=== PATIENT | male | born 1950 | race Caucasian/White ===

== ENCOUNTER → 2018-09-03 | Outpatient (CLI) | payer MEDICARE, MEDICAID ==
[~2018-09-03] MED LIST: AMIO400T5 PO; AMLO10TA82 PO; ASP325T PO; ATR20T PO; CATHETER FLUSH 10 ML SYR IV PRN; DILT240C PO; DILT300T7 PO; Eliquis PO; FURO40TA4 PO; HYDR-3857 PO; LISI10TA PO; METO-272 PO; METO25TA2 PO; MTP50T PO; REGADENOSON 0.4 MG/5 ML SYR (LEXISCAN) IV ONE; ROSU10TA12 PO; TRAM50TA2 PO
[2018-09-03 08:57] VITALS: BP 160/117
[2018-09-03 08:58] VITALS: BP 147/97
--- NOTE | 2018-09-03 12:28 | STRESS TEST ---
DATE OF SERVICE: 09/03/2018 LEXISCAN MYOVIEW STRESS TEST REPORT REFERRING PHYSICIANS: 1. Jan Krishnan DO 2. Ginger Reed MD Baseline heart rate is 80, baseline blood pressure 165/110. Baseline EKG is atrial fibrillation with no ischemic changes. In summary, the patient was injected with 10.31 mCi of technetium-99 Myoview and the resting images were obtained. Then, the patient started receiving Lexiscan 0.4 mg IV followed by 29.3 mCi of technetium-99 Myoview. Throughout the test, there were no EKG changes. The resting and stressed images were reviewed and compared in the short axis, horizontal long axis, and vertical long axis views. Review of the images showed diaphragmatic attenuation with typical male pattern. There is mild apical thinning. Overall, there is no significant ischemia or infarction. SSS is 1, SDS 1, TID value 1.02. On the gated images, the left ventricle appeared to be normal size with normal contractility. Calculated ejection fraction 49%. Gated images are unreliable due to underlying atrial fibrillation. CONCLUSION: 1. The patient tolerated Lexiscan well. 2. Diaphragmatic attenuation with no significant ischemia or infarction on SPECT images. 3. Normal left ventricular size and contractility, calculated ejection fraction 49%, gated images are unreliable due to underlying atrial fibrillation. Job ID: [id number] DocumentID: [id number] Dictated Date: 09/03/2018 11:43:23 Public Housing Interviewer Date: 09/03/2018 12:27:54 Dictated By: BARBARA GUILLEN MD
== END ==
LOC: CARD 07:24
PROVIDERS: ATTEND Internal Medicine Cardiovascular Disease
DX: I25.10 Atherosclerotic heart disease of native coronary artery without angina pectoris (principal); I11.0 Hypertensive heart disease with heart failure; I50.9 Heart failure, unspecified; I48.92 Unspecified atrial flutter
CPT/HCPCS: 78452; 93017

== ENCOUNTER 2019-08-19 13:18 | Inpatient (IN) | payer MEDICARE, MEDICAID ==
[2019-08-19] VITALS (7 sets, daily range): BP systolic 116–146; BP diastolic 78–99
[~2019-08-19] VITALS: Ht 170.2 cm; Wt 90.6 kg
[~2019-08-19 13:18] MED LIST changes: -CATHETER FLUSH 10 ML SYR IV PRN; -REGADENOSON 0.4 MG/5 ML SYR (LEXISCAN) IV ONE
[2019-08-19] MEDS ORDERED: BRIM5DRO2 OU (14:05)
[2019-08-19] MEDS ORDERED: WARF2.5T82 PO (14:05)
[2019-08-19] MEDS ORDERED: FURO-124 PO (14:05)
[2019-08-19] MEDS ORDERED: ASPI-983 PO (14:05)
[2019-08-19] MEDS ORDERED: POTA-51 PO (14:05)
[2019-08-19] MEDS ORDERED: SACU1TAB PO (14:05)
[2019-08-19] MEDS ORDERED: CALC200T33 PO (14:05)
[2019-08-19] MEDS ORDERED: ATOR40TA70 PO (14:05)
[2019-08-19] MEDS ORDERED: WARF-48 PO (14:05)
[2019-08-19] MEDS ORDERED: CRV25T PO (14:05)
[2019-08-19] MEDS ORDERED: LANO454C3 TP (14:05)
[2019-08-19] MEDS ORDERED: MINE15DR4 OU (14:05)
[2019-08-19] MEDS ORDERED: LATA2.5D19 OU (14:05)
--- NOTE | 2019-08-19 14:07 | NUR ---
UPDATED MED REC WITH MAR FROM [facility].
[2019-08-19 14:51] LABS: HEMOGLOBIN 11.5 G/DL (13.3-17.7); MEAN PLATELET VOLUME 9.2 FL (7.4-10.4); RED CELL DISTRIBUTION WIDTH 16.7 % (10.0-14.5); WHITE BLOOD COUNT 7.8 10^3/uL (4.3-11.0)
[2019-08-19 15:11] LABS: INR 1.9 (0.8-1.4); PROTHROMBIN TIME PATIENT 22.6 SEC (12.2-14.7)
[2019-08-19 15:12] LABS: ALANINE AMINOTRANSFERASE 32 U/L (0-55); ALBUMIN 3.6 GM/DL (3.2-4.5); ALKALINE PHOSPHATASE 128 U/L (40-136); BILIRUBIN,TOTAL 0.7 MG/DL (0.1-1.0); BUN/CREATININE RATIO 14; CARBON DIOXIDE 26 MMOL/L (21-32); CHLORIDE 104 MMOL/L (98-107); CREATININE SERUM 1.04 MG/DL (0.60-1.30); GFR ESTIMATED > 60; GLUCOSE 115 MG/DL (70-105); MAGNESIUM 2.1 MG/DL (1.6-2.4); POTASSIUM 4.5 MMOL/L (3.6-5.0); SODIUM 140 MMOL/L (135-145); TOTAL PROTEIN 7.2 GM/DL (6.4-8.2)
--- NOTE | 2019-08-19 15:56 | Electrophysiology Consultation ---
HPI-Cardiology Cardiology Consultation: Date of Consultation 08/19/19 Date of Admission Attending Physician Kit Moulton MD Admitting Physician Jan Krishnan DO Consulting Physician Tarah GALLAGHER MD HPI: Time Seen by a Provider: 15:00 Chief Complaint: Ventilated tachycardia This is a 69-year-old gentleman who is a patient of Dr. Moulton. I have been consulted for cardiac electrophysiology. He presented to [facility] on 08/14/2019 with chest pain, diaphoresis, palpitation and was found to be in wide complex tachycardia. He was cardioverted to sinus rhythm. The patient has history of CABG in 2012 at [facility] and known cardiomyopathy with an EF of 30 percent. He is on Entresto and carvedilol. He does not smoke. He does not have significant family history. He denies diabetes. Review of Systems-Cardiology Review of Systems Constitutional: As described under HPI; No As described under HPI, No no symptoms reported, No chills, No fever, No lightheadedness Eyes: No As described under HPI, No no symptoms reported, No blindness, No blurred vision, No contact lenses, No drainage, No decreased acuity, No foreign body sensation, No pain, No vision change Ears/Nose/Throat: No As described under HPI, No no symptoms reported, No chronic hearing loss, No ear discharge, No ear pain, No nasal drainage, No ulcerations Respiratory: No no symptoms reported; As described under HPI; No As described under HPI, No cough, No orthopnea, No shortness of breath, No SOB with excertion Cardiovascular: No no symptoms reported; As described under HPI; No As described under HPI; chest pain; No edema, No irregular heart rate, No lightheadedness; palpitations Gastrointestinal: No no symptoms reported, No As described under HPI, No abdomen distended, No abdominal pain, No blood streaked bowels, No constipation, No diarrhea, No nausea, No vomiting, No stool coloration changes Genitourinary: No As described under HPI, No burning, No dysuria, No discharge, No frequency, No flank pain, No hematuria, No urgency Skin: No rash, No skin related problems, No ulcerations Psychiatric/Neurological: No anxiety, No depression, No seizure, No focal we akness, No syncope Hematologic: No bleeding abnormalities [id number]-[id number] Hx Patient Social History Recent Foreign Travel: No Past Medical History PMH As described under Assessment. Allergies and Home Medications Allergies Coded Allergies: No Known Drug Allergies (Unverified , 08/05/12) Home Medications Aspirin 81 Mg Tablet.dr, 81 MG PO DAILY, (Reported) Atorvastatin Calcium 40 Mg Tablet, 40 MG PO DAILY, (Reported) Brimonidine Tartrate 5 Ml Drops, 1 DROP OU BID, (Reported) Calcium Carbonate 200 Mg Tab.chew, 1 TAB PO Q6H PRN for HEARTBURN, (Reported) Carvedilol 25 Mg Tab, 25 MG PO BID, (Reported) Furosemide 40 Mg Tablet, 60 MG PO BID, (Reported) Lanolin Alcohol/Mo/W.pet/[place] 454 Gm Cream..g., TP HS, (Reported) APPLY TO BLE Latanoprost 2.5 Ml Drops, 1 DROP OU HS, (Reported) Mineral Oil, Light/Mineral Oil 15 Ml Drops, 1 DROP OU QID, (Reported) Potassium Chloride 20 Meq Tablet.er, 20 MEQ PO DAILY, (Reported) Sacubitril/Valsartan 1 Each Tablet, 1 TAB PO BID, (Reported) HOLD IF SBP <100 Warfarin Sodium 2.5 Mg Tablet, 2.5 MG PO MoWeFr, (Reported) Warfarin Sodium 5 Mg Tablet, 5 MG PO SuTuThSa, (Reported) Patient Home Medication List Home Medication List Reviewed: Yes Physical Exam-Cardiology Physical Exam Vital Signs/I&O 08/19/19 08/19/19 08/19/19 08/19/19 13:33 13:45 14:00 14:00 Pulse 86 89 79 Resp 29 29 B/P (MAP) 135/85 (102) 129/78 (95) Pulse Ox 98 95 96 O2 Delivery Room Air Room Air Room Air 08/19/19 15:00 Pulse 84 Resp 24 B/P (MAP) Pulse Ox 97 O2 Delivery Room Air Capillary Refill : Constitutional: appears stated age, AAO x 3; No apparent distress; well- developed, well-nourished HEENT: PERRL; No discharge; hearing is well preserved, oral hygience is good; No ulceration, No xanthelasmas are seen Neck: No carotid bruit; carotid pulses are 2 + bilaterally Respiratory: chest is bilaterally symmetric, lungs clear to auscultation Cardiovascular: irregularly irregular, S1 and S2 Gastrointestinal: soft, round, audible bowel sounds; No spleenomegaly Rectal: deferred Extremities: normal range of motion, non-tender, normal inspection; No clubbing, No cyanosis; no lower extremity edema bilateral; No significant edema Neurologic/Psychiatric: no motor/sensory deficits, alert, normal mood/affect, oriented x 3, power is 5/5 both on sides Skin: normal color; No rash, No ulcerations Data Review Labs Laboratory Tests 08/19/19 14:40: White Blood Count 7.8, Red Blood Count 3.99L, Hemoglobin 11.5L, Hematocrit 36L, Mean Corpuscular Volume 91, Mean Corpuscular Hemoglobin 29, Mean Corpuscular Hemoglobin Concent 32, Red Cell Distribution Width 16.7H, Platelet Count 271, Mean Platelet Volume 9.2, Prothrombin Time 22.6H, INR Comment 1.9H, Activated Partial Thromboplast Time 45H, Sodium Level 140, Potassium Level 4.5, Chloride Level 104, Carbon Dioxide Level 26, Anion Gap 10, Blood Urea Nitrogen 15, C reatinine 1.04, Estimat Glomerular Filtration Rate > 60, BUN/Creatinine Ratio 14, Glucose Level 115H, Calcium Level 9.0, Corrected Calcium 9.3, Magnesium Level 2.1, Total Bilirubin 0.7, Aspartate Amino Transf (AST/SGOT) 19, Alanine Aminotransferase (ALT/SGPT) 32, Alkaline Phosphatase 128, Troponin I < 0.028, Total Protein 7.2, Albumin 3.6, Thyroid Stimulating Hormone (TSH) 3.99 ECG Impression ECG Initial ECG Impression: Atrial Fibrillation A/P-Cardiology Assessment/Admission Diagnosis Sustained VT, Atrial fibrillation with controlled ventricular rate Chest pain, History of CAD/CABG, Ischemic cardiomyopathy Plan This is a 69-year-old gentleman with known history of CAD, CABG, ischemic cardiomyopathy who presented with unstable sustained ventricular tachycardia wit h chest pain and diaphoresis requiring defibrillation which converted to sinus rhythm. Hold Coumadin. Continue high-dose beta joselyn. Coronary evaluation is recommended and discussed with Dr. Moulton. No antiarrhythmics at this point in time. Will likely require transesophageal echocardiogram assisted cardioversion followed by dual-chamber ICD implantation once INR is within ac ceptable limits. ICD is recommended for secondary prevention. EKG dated 08/14/2019 at 9:23 a.m. shows sinus rhythm with narrow QRS. QRS duration is 80 ms. DIE MAKER therapy is not recommended. Atrial fibrillation with controlled ventricular rate, transesophageal echocardiogram assisted cardioversion. Rhythm control strategy. Ischemic cardiomyopathy, defer to Dr. Moulton. Preliminary echocardiogram shows an EF of 30-35 percent, global hypokinesis. CAD/CABG, defer to Dr. Moulton. Will likely get coronary evaluation. Thank you for your consultation. Please call me if you have any questions. Kaushik Gallagher MD, FACP, FACC, FSCAI, FHRS, CCDS Interventional Cardiology Cardiac Electrophysiology Vascular Medicine and Endovascular Interventions Tarah GALLAGHER MD Aug 19, 2019 15:56
[2019-08-19] MEDS ORDERED: CALCIUM CARBONATE PO PRN (16:15)
[2019-08-19] MEDS ORDERED: CALCIUM CARBONATE 500 MG (TUMS) TAB.CHEW PO PRN (16:15)
--- NOTE | 2019-08-19 16:17 | Diagnostic Imaging Report ---
INDICATION: Arrhythmia. PA and lateral chest. FINDINGS: There are postop changes from CABG surgery. Heart size and pulmonary vascularity are normal. Lungs are clear. There are no effusions or pneumothoraces. IMPRESSION: No acute abnormalities in the chest. Dictated by: Dictated on workstation # [id number]
[2019-08-19] MEDS: FUROSEMIDE 40 MG (LASIX) TAB PO SCH (17:35)
[2019-08-19] MEDS: LATANOPROST 0.005% (XALATAN) OPHTH SOLN 2.5 ML OU SCH (19:49)
[2019-08-19] MEDS: BRIMONIDINE 0.2% (ALPHAGAN) OPHTH SOLN 5 ML BTL OU SCH (19:49)
[2019-08-19] MEDS: CARVEDILOL 12.5 MG (COREG) TABLET PO SCH (19:50)
[2019-08-19] MEDS: SACUBITRIL/VALSARTAN 24/26 MG (ENTRESTO) TABLET PO SCH (19:50)
[2019-08-19] MEDS ORDERED: NON-FORMULARY MEDICATION 1 EA EA (Brimonidine Tartrate (Alphagan P) 1 DROP) OU SCH (21:00)
[2019-08-19] MEDS ORDERED: NON-FORMULARY MEDICATION 1 EA EA (Carvedilol (Coreg) 25 MG) PO SCH (21:00)
[2019-08-19] MEDS ORDERED: LATANOPROST OU SCH (21:00)
[2019-08-20] VITALS (18 sets, daily range): BP systolic 91–147; BP diastolic 69–111
[2019-08-20 03:54] LABS: INR 1.8 (0.8-1.4)
[2019-08-20] MEDS: KCL 20 MEQ TAB (K-DUR) PO SCH (06:29)
[2019-08-20] MEDS: FUROSEMIDE 40 MG (LASIX) TAB PO SCH ×2 (06:29→18:15)
[2019-08-20] MEDS ORDERED: LIDOCAINE 1% INJ 20 ML 20 ML VIAL ONE (06:46)
[2019-08-20] MEDS ORDERED: HEParin (CATH LAB) 2,000 ML IV ONE (06:47)
--- NOTE | 2019-08-20 07:03 | Cardiology History & Physical ---
HPI-Cardiology Cardiology Consultation Date of Consultation 08/20/19 Date of Admission Time Seen by Provider: 06:57 Indication: ventricular tachycardia HPI 69 years old gentleman with history of ischemic cardiomyopathy, coronary artery disease, presented to [place] emergency room with wide complex tachycardia and chest pain and diaphoresis, given Adenosine without response then he was cardioverted using 100 J, has been feeling better since then. I saw the office and directly admitted him. He has been feeling well. Has been compliant with medication. Had chest pain and palpitations as described above. Had history of atrial fibrillation, was in sinus rhythm after the cardioversion on August 14, 2019 PMH-Cardiology Seasonal Allergies Seasonal Allergies: Yes Surgeries Yes Cardiac Respiratory No Cardiovascular Yes Irregular Heartbeat, Atrial Fibrillation, Heart Attack, Chronic Edema/Swelling, High Cholesterol, Hypertension, Congestive Heart Failure, Coronary Artery Disease Neurological No Reproductive System Hx Reproductive Disorders: No Genitourinary No Gastrointestinal No Musculoskeletal No (weakness) Endocrine No HEENT No Cancer No Psychosocial No Integumentary Yes (scarring to arms) Blood Transfusions No Adverse Rxn to Transfusion: No Other PMHx Discussed below Social History Patient Social History Marrital Status: single Employed/Student: unemployed, retired Alcohol Use: Denies Use Recreational Drug Use: No Recent Foreign Travel: No Contact w/other who traveled: No Recent Infectious Disease Expo: No Family Hx Significant Family History: Heart Disease, Cancer, CAD Under 55 Years Old Other Family history of heart disease ROS-Cardiology Review of Systems General: No Chills, No Night Sweats, No Fatigue, No Malaise, No Appetite HEENT: No Head Aches, No Visual Changes, No Eye Pain, No Ear Pain, No Dysphasia, No Sinus Congestion, No Post Nasal Drip, No Sore Throat Pulmonary: Dyspnea; No Cough, No Pleuritic Chest Pain Cardiovascular: Chest Pain, Palpitations; No: Orthopnea, Paroxysmal Noc. Dyspnea, Edema, Lt Headedness Gastrointestinal: No: Nausea, Vomiting, Abdominal Pain, Diarrhea, Constipation, Melena, Hematochezia Genitourinary: No Dysuria, No Frequency, No Incontinence, No Hematuria, No Retention Musculoskeletal: No: neck pain, shoulder pain, arm pain, back pain, hand pain, leg pain, foot pain Neurological: No: Weakness, Numbness, Incoordination, Change in speech, Confusion, Seizures Home Medications & Allergies Allergies: Coded Allergies: No Known Drug Allergies (Unverified , 08/05/12) Home Medication List Reviewed: Yes Exam-Cardiology Vital Signs Vital Signs Date Time Temp Pulse Resp B/P (MAP) Pulse Ox O2 Delivery O2 Flow Rate FiO2 08/20/19 04:00 36.1 08/20/19 03:00 78 122/88 (99) 92 Room Air 08/19/19 16:05 18 Exam General Appearance: Alert, Oriented X3, Cooperative, No Acute Distress HEENT: Atraumatic, PERRLA Respiratory: Clear to Auscultation, Normal Air Movement Cardiovascular: Regular Rate, Normal S1, Normal S2, No Murmurs Abdominal: Normal Bowel Sounds, Soft, No Tenderness, No Hepatosplenomegaly, No Masses Extremities: No Clubbing, No Cyanosis, No Edema, Normal Pulses, No Tenderness/Swelling Skin: No Rashes, No Breakdown, No Significant Lesion Neuro: Normal Gait, Normal Speech, Strength at 5/5 X4 Ext, Normal Tone, Sensation Intact Psych/Mental Status: Mental Status NL, Mood NL Results Labs Labs Laboratory Tests 08/19/19 14:40: White Blood Count 7.8, Red Blood Count 3.99L, Hemoglobin 11.5L, Hematocrit 36L, Mean Corpuscular Volume 91, Mean Corpuscular Hemoglobin 29, Mean Corpuscular Hemoglobin Concent 32, Red Cell Distribution Width 16.7H, Platelet Count 271, Mean Platelet Volume 9.2, Prothrombin Time 22.6H, INR Comment 1.9H, Activated Partial Thromboplast Time 45H, Sodium Level 140, Potassium Level 4.5, Chloride Level 104, Carbon Dioxide Level 26, Anion Gap 10, Blood Urea Nitrogen 15, Creati nine 1.04, Estimat Glomerular Filtration Rate > 60, BUN/Creatinine Ratio 14, Glucose Level 115H, Calcium Level 9.0, Corrected Calcium 9.3, Magnesium Level 2.1, Total Bilirubin 0.7, Aspartate Amino Transf (AST/SGOT) 19, Alanine Aminotra nsferase (ALT/SGPT) 32, Alkaline Phosphatase 128, Troponin I < 0.028, Total Protein 7.2, Albumin 3.6, Thyroid Stimulating Hormone (TSH) 3.99 08/20/19 03:05: Prothrombin Time 22.0H, INR Comment 1.8H A/P-Cardiology Admission Diagnosis Ventricular tachycardia Coronary artery disease Congestive heart failure, chronic compensated left ventricular systolic dysfunction, ischemic cardiomyopathy Hypertension Hyperlipidemia Admission Status: Inpatient Order (span 2 midnights) Reason for Inpatient Admission: Patient will need heart catheterization and ICD implant Assessment/Plan Coronary artery disease, history of CABG 5 done in 2011, last stress test was done on September 03, 2018 showing diaphragmatic attenuation with no significant ischemia or infarction. Gated images showed ejection fraction 49 percent but patient was in atrial fibrillation on his echo his ejection fraction was 30 percent. Patient had ventricular tachycardia, repeat echo showed ejection fraction 35-40 percent, high risk for coronary artery disease progression, I will proceed with cardiac catheterization, he will need an ICD implant Congestive heart failure, LV systolic dysfunction with EF 30 percent. Likely ischemic in nature. Deterioration compared to the 2013 2-D echocardiogram. Ma intained on beta joselyn, ARB, was seen in [place] emergency room with ventricular tachycardia, underwent defibrillation shock, I am planning to proceed with coronary angiogram then possible ICD implant Patient was seen in [place] emergency room on August 14, 2019 with chest pain and wide complex tachycardia, failed Adenosine, he was cardioverted with 100 J return to sinus rhythm with narrow complex, consult Dr. Gallagher Dyspnea on exertion, limited exercise ability. Continue on current medication monitor History of paroxysmal atrial flutter, atrial fibrillation, currently in sinus rhythm. Maintained on Coumadin, INR 1.8, I will start him on Lovenox after the cardiac catheterization Labile hypertension, blood pressure currently well controlled, continue to monitor. Hyperlipidemia, maintained on Lipitor, had lab work done recently, I'll obtain copy of the results Baseline EKG abnormality was sinus rhythm, left axis deviation. Left anterior fascicular block. Poor R-wave progression in the anterior leads. Nonobstructive carotid artery stenosis per carotid duplex done June 2018, continue to monitor. Unsteady gait and generalized weakness for which he uses a wheelchair. Clinical Quality Measures DVT/VTE Risk/Contraindication: Risk Factor Score Per Nursin RFS Level Per Nursing on Admit: 4+=Very High BARBARA GUILLEN MD Aug 20, 2019 07:02
[2019-08-20] MEDS ORDERED: NS IV 1000 ML 1,000 ML IV SCH (07:45)
--- NOTE | 2019-08-20 08:35 | Consultation - Hospitalist ---
HPI History of Present Illness: HPI/Chief Complaint patient is 69-year-old male with a past medical history of coronary artery disease status post CABG 5, ischemic cardiomyopathy, paroxysmal atrial fibrillation, and hypertension who presented to Dr. Membreno's office as a follow- up for nonsustained ventricular tachycardia. Patient reports he was seen at [facility] ER because his heart was racing and was found to be in a wide complex tachycardia. Per notes he was given adenosine without resolution and subsequently was cardioverted. This returned him to sinus rhythm and he was advised to follow-up with Dr. Membreno is an outpatient. Dr. Membreno saw the patient yesterday and direct admitted him for further cardiac evaluation. I am consulted for medical management. The only other medical problem the patient to report to me is that he recently had a urinary tract infection. He denies any chest pain, shortness of breath, palpitations,nausea, vomiting, or loss of appetite. Source: patient Exam Limitations: no limitations Date Seen 08/20/19 Attending Physician Kit Moulton MD PCP Jan Krishnan DO Referring Physician Date of Admission Aug 19, 2019 at 13:30 Home Medications & Allergies Home Medications Reviewed patient Home Medication Reconciliation performed by pharmacy medication reconciliations video game repair technician and/or nursing. Patients Allergies have been reviewed. Allergies Allergies Coded Allergies No Known Drug Allergies (Unverified08/05/12) Past Aalmlcr-Lfcgqm-Lygszr Hx Past Med/Social Hx: Reviewed Nursing Past Med/Soc Hx Patient Social History Marrital Status: single Employed/Student: retired Alcohol Use: Denies Use Recreational Drug Use: No Smoking Status: Never a Smoker Physical Abuse Screen: No Sexual Abuse: No Recent Foreign Travel: No Contact w/other who traveled: No Recent Hopitalizations: No Recent Infectious Disease Expo: No Seasonal Allergies Seasonal Allergies: Yes Past Medical History Surgeries: CABG Cardiac: Atrial Fibrillation, Cardiomyopathy, Coronary Artery Disease, High Ch olesterol, Hypertension, Irregular Heartbeat Reproductive: No HEENT: Glaucoma History of Blood Disorders: No Adverse Reaction to Blood Sinclair: No Family History Reviewed Nursing Family Hx Heart Disease, Cancer, CAD Under 55 Years Old Review of Systems Constitutional: no symptoms reported EENTM: no symptoms reported Respiratory: No cough, No dyspnea on exertion, No short of breath Cardiovascular: see HPI Gastrointestinal: no symptoms reported Genitourinary: No discharge, No dysuria, No frequency; other (recent UTI) Musculoskeletal: no symptoms reported Skin: no symptoms reported Psychiatric/Neurological: No Symptoms Reported Physical Exam Physical Exam Vital Signs Vital Signs - First Documented 08/19/19 08/19/19 08/19/19 13:33 13:45 16:05 Temp 37.0 Pulse 86 Resp 29 B/P (MAP) 135/85 (102) Pulse Ox 98 O2 Delivery Room Air Capillary Refill : Height, Weight, BMI Height: '" Weight: 213lbs. 0.3oz. [id number]; 33.72 BMI Method:Stated General Appearance: No Apparent Distress, Chronically ill, Obese HEENT: Moist Mucous Membranes; No Scleral Icterus (L), No Scleral Icterus (R) Neck: Normal Inspection, Supple; No JVD, No Thyromegaly Respiratory: Lungs Clear, No Accessory Muscle Use, No Respiratory Distress Cardiovascular: Regular Rate, Rhythm, No Murmur, Normal Peripheral Pulses Gastrointestinal: Normal Bowel Sounds, Non Tender, Soft Extremity: Non Tender, No Calf Tenderness, No Pedal Edema Neurologic/Psychiatric: Alert, Oriented x3, Normal Mood/Affect; No Aphasia, No Facial Droop Skin: Normal Color, Warm/Dry Results Results/Procedures Labs Laboratory Tests 08/19/19 14:40 Patient resulted labs reviewed. Imaging: Reviewed Imaging Report Assessment/Plan Assessment and Plan Assess & Plan/Chief Complaint Nonsustained Ventricular Tachycardia CAD s/p CABG Ischemic Cardiomyopathy with EF 35%- echo done 08/20/19 paroxysmal Atrial Fibrillation Monitor on telemetry Plan for Cath today per Dr Saige Gallagher consulted for EP- recommended ROSS and cardioversion with ICD placement Warfarin held for procedure- INR 1.8 HTN Well controlled on current regimen, trend HLD Continue statin Discharge planning From [place] Diagnosis/Problems Diagnosis/Problems (1) Atrial fibrillation (2) CAD (coronary artery disease) (3) Essential (primary) hypertension (4) Hyperlipidemia (5) V tach Clinical Quality Measures DVT/VTE Risk/Contraindication: Risk Factor Score Per Nursin RFS Level Per Nursing on Admit: 4+=Very High MYRTLE MANSFIELD MD Aug 20, 2019 08:35
[2019-08-20] MEDS ORDERED: NON-FORMULARY MEDICATION 1 EA EA (Potassium Chloride 20 MEQ) PO SCH (09:00)
[2019-08-20] MEDS: BRIMONIDINE 0.2% (ALPHAGAN) OPHTH SOLN 5 ML BTL OU SCH ×2 (09:05→21:00)
[2019-08-20] MEDS: CARVEDILOL 12.5 MG (COREG) TABLET PO SCH ×2 (09:05→21:02)
[2019-08-20] MEDS: SACUBITRIL/VALSARTAN 24/26 MG (ENTRESTO) TABLET PO SCH ×2 (09:05→21:00)
[2019-08-20] MEDS: ASPIRIN E.C. 81 MG (ECOTRIN) TAB PO SCH (09:06)
--- NOTE | 2019-08-20 12:56 | Cardiac Procedure Note-CS/ASA ---
Pre-Procedure Note Pre-Op Procedure Note H&P Reviewed The H&P was reviewed, patient examined and no changes noted. Date H&P Reviewed: Aug 20, 2019 Time H&P Reviewed: 12:55 Conscious Sedation Pre-Proced Time 12:55 ASA Score 3 For ASA 3 and 4: Consider anesthesia and medical clearance. Also, for patients with a history of failed moderate sedation consider anesthesia. Airway Lungs Heart ASA score ASA 1: a normal healthy patient ASA 2: a patient with a mild systemic disease (mid diabetes, controlled hypertension, obesity x ASA 3: a patient with a severe systemic disease that limits activity (angina, COPD, prior Myocardial infarction) ASA 4: a patient with an incapacitating disease that is a constant threat to life (CHF, renal failure) ASA 5: a moribund patient not expected to survive 24 hrs. (ruptured aneurysm) ASA 6: a declared brain- patient whose organs are being harvested. For emergent operations, add the letter E after the classification Mallampati Classification Grade 3 Sedation Plan Analgesia, Amnesia, Plan communicated to team members, Discussed options with patient/fam, Discussed risks with patient/fam The patient is an appropriate candidate to undergo the planned procedure, sedation, and anesthesia. The patient immediately re-assessed prior to indication. BARBARA GUILLEN MD Aug 20, 2019 12:56
--- NOTE | 2019-08-20 14:34 | NUR ---
general labor team here to transport patient to irrigation laborer.
[2019-08-20] MEDS ORDERED: NS IV 1000 ML 1,000 ML ONE (14:37)
[2019-08-20] MEDS ORDERED: fentaNYL INJECTION 100 MCG/2 ML AMP ONE (14:37)
[2019-08-20] MEDS ORDERED: MIDAZOLAM 5 MG/5 ML (VERSED) VIAL ONE (14:37)
[2019-08-20] MEDS: NS IV 1000 ML 1,000 ML IV SCH (15:37)
--- NOTE | 2019-08-20 15:44 | Cardiac Cath Report ---
Cardiac Cath Report Physician (s)/Level Vial Inspector And Tester (s) Physician BARBARA GUILLEN MD Pre-Procedure Diagnosis Pre-Procedure Diagnosis: ventricular tachycardia, coronary artery disease Post-Procedure Note Procedure Start Date: Aug 20, 2019 Name of Procedure: left heart catheterization Vein graft angiogram Aortic root angiogram Findings/Procedure Note PROCEDURE NOTE: 69 years old gentleman with history of coronary artery disease, CABG, paroxysmal atrial fibrillation admitted with ventricular tachycardia, scheduled for cardiac catheterization possible PTCA After explaining the procedure to the patient, all pros and cons were explained, all questions were answered. The patient signed the consent and then he was p laced on the cardiac catheterization laboratory. Groin was prepped SL fashion local anesthesia was used. Sheath placed in the right femoral artery. Isi right and left catheter were used to access the coronary system.Vein Graft evaluated. HORN evaluated. Pigtail was used to access the left ventricular cavity. Left ventriculogram was not done, pressure was measured Aortic root angiogram was done At the end of the procedure the sheath was removed. Closure device was used FINDINGS: Hemodynamics LV 129/12, end-diastolic pressure of 12 Aorta and 25/78 mean of 100 ANATOMY: Left Main has severe stenosis Left Anterior Descending is totally occluded, jump graft vein graft to the diagonal and LAD is patent Left Circumflex is totally occluded with vein graft to the obtuse marginal branch is patent Right Coronory Artery is dominant artery with tubular stenosis 60 percent stenosis, there are 2 vein graft occluded probably to the right coronary artery and PDA HORN is free with no obstructive disease Vein Graft there is total of 5 grafts Vein graft to the obtuse marginal branch is patent with good flow distally Vein graft jump graft to the diagonal and LAD is patent with good flow in the LAD system There are 2 stumps of vein graft that are occluded presumably to the right coronary artery LV Gram was not done pressure was measured Aorta evaluation done with aortic root angiogram which showed atherosclerotic plaque, no dissection or aneurysm, normal aortic valve CONCLUSION: 1. Severe [place] coronary artery disease in the left system with patent jump graft vein graft to the diagonal and LAD and patent vein graft to the obtuse marginal branch with good flow in the left system 2. Dominant right coronary artery with tubular stenosis 60 percent stenosis at the midportion, tortuous artery, there are 2 occluded vein graft presumably to the right coronary system 3. Normal left ventricular end-diastolic pressure 4. Hypertensive changes in the ascending aorta and aortic arch, no dissection or aneurysm DISCUSSION AND RECOMMENDATION: continue to maximize medical therapy, patient will need to have ICD Anesthesia Type: Conscious Sedation Estimated blood loss (mL): 25 ml Contrast Amount: 67 ml Total Radiation Dose: 750 mGy Post-Procedure Diagnosis (1) V tach (2) Atrial fibrillation Qualifiers: Qualified Codes: I48.0 - Paroxysmal atrial fibrillation (3) CAD (coronary artery disease) Qualifiers: Qualified Codes: I25.708 - Atherosclerosis of coronary artery bypass graft(s), unspecified, with other forms of angina pectoris (4) Essential (primary) hypertension (5) Hyperlipidemia Qualifiers: Qualified Codes: E78.2 - Mixed hyperlipidemia BARBARA GUILLEN MD Aug 20, 2019 15:44
[2019-08-20] MEDS ORDERED: PATIENT MAY USE OWN MEDS, ALL PO SCH (15:45)
--- NOTE | 2019-08-20 17:11 | Cardiology Progress Note ---
Cardiology SOAP Progress Note Subjective: No further palpitations. Objective: I&O/Vital Signs 08/20/19 08/20/19 08/20/19 08/20/19 07:00 07:00 08:00 08:00 Temp 37.2 Pulse 87 80 64 B/P (MAP) 147/111 (123) 136/89 (105) Pulse Ox 95 93 O2 Delivery Room Air Room Air 08/20/19 08/20/19 08/20/19 08/20/19 08:00 09:00 10:00 11:00 Pulse 97 96 76 B/P (MAP) 130/73 (92) 112/79 (90) 120/86 (97) Pulse Ox 94 93 93 O2 Delivery Room Air Room Air Room Air Room Air 08/20/19 08/20/19 08/20/19 08/20/19 12:00 13:00 13:00 14:00 Pulse 94 84 96 106 B/P (MAP) 113/82 (92) 128/74 (92) 123/88 (100) Pulse Ox 94 93 90 O2 Delivery Room Air Room Air Room Air 08/20/19 16:00 Pulse 90 B/P (MAP) 130/92 (105) Pulse Ox 100 O2 Delivery Room Air 08/20/19 00:00 Intake Total 100 ml Output Total 1375 ml Balance -1275 ml Weight (Pounds): 213 Weight (Ounces): 0.3 Weight (Calculated Kilograms): [id number] Constitutional: appears stated age, AAO x 3; No apparent distress; well- developed, well-nourished Respiratory: chest is bilaterally symmetric, lungs clear to auscultation Cardiovascular: irregularly irregular, S1 and S2 Gastrointestional: soft, round, audible bowel sounds; No spleenomegaly Extremities: normal range of motion, non-tender, normal inspection; No clubbing, No cyanosis; no lower extremity edema bilateral; No significant edema Neurologic/Psychiatric: no motor/sensory deficits, alert, normal mood/affect, oriented x 3, power is 5/5 both on sides Skin: normal color; No rash, No ulcerations Results/Procedures: Labs Laboratory Tests 08/20/19 03:05: Prothrombin Time 22.0H, INR Comment 1.8H A/P: Assessment/Dx: Sustained VT, Atrial fibrillation with controlled ventricular rate Chest pain, History of CAD/CABG, Ischemic cardiomyopathy Plan: This is a 69-year-old gentleman with known history of CAD, CABG, ischemic cardiomyopathy who presented with unstable sustained ventricular tachycardia with chest pain and diaphoresis requiring defibrillation which converted to sinus rhythm. Hold Coumadin. Continue high-dose beta joselyn. Coronary evaluation is recommended and discussed with Dr. Moulton. No antiarrhythmics at this point in time. Will likely require transesophageal echocardiogram assisted cardioversion followed by dual-chamber ICD implantation once INR is within acceptable limits. ICD is recommended for secondary prevention likely . EKG dated 08/14/2019 at 9:23 a.m. shows sinus rhythm with narrow QRS. QRS duration is 80 ms. 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 Atrial fibrillation with controlled ventricular rate, transesophageal echocardiogram assisted cardioversion. Rhythm control strategy. Ischemic cardiomyopathy, defer to Dr. Moulton. Preliminary echocardiogram shows an EF of 30-35 percent, global hypokinesis. CAD/CABG, defer to Dr. Moulton. Coronary angiography today. Thank you for your consultation. Please call me if you have any questions. Kaushik Gallagher MD, FACP, FACC, FSCAI, FHRS, CCDS Interventional Cardiology Cardiac Electrophysiology Vascular Medicine and Endovascular Interventions Tarah GALLAGHER MD Aug 20, 2019 17:11
[2019-08-20] MEDS: LATANOPROST 0.005% (XALATAN) OPHTH SOLN 2.5 ML OU SCH (21:00)
[2019-08-21] VITALS: BP 104/63
[2019-08-21] MEDS: NS IV 1000 ML 1,000 ML IV SCH ×3 (03:13→21:56)
[2019-08-21 03:28] LABS: HEMOGLOBIN 13.1 G/DL (13.3-17.7); MEAN PLATELET VOLUME 9.4 FL (7.4-10.4); RED CELL DISTRIBUTION WIDTH 17.2 % (10.0-14.5); WHITE BLOOD COUNT 8.2 10^3/uL (4.3-11.0)
[2019-08-21 03:45] LABS: INR 1.6 (0.8-1.4); PROTHROMBIN TIME PATIENT 19.8 SEC (12.2-14.7)
[2019-08-21 03:50] LABS: BUN/CREATININE RATIO 19; CALCIUM 8.4 MG/DL (8.5-10.1); CARBON DIOXIDE 24 MMOL/L (21-32); CHLORIDE 105 MMOL/L (98-107); CREATININE SERUM 0.91 MG/DL (0.60-1.30); GFR ESTIMATED > 60; GLUCOSE 116 MG/DL (70-105); POTASSIUM 3.8 MMOL/L (3.6-5.0); SODIUM 142 MMOL/L (135-145)
[2019-08-21 04:39] VITALS: BP 118/82
[2019-08-21] MEDS: FUROSEMIDE 40 MG (LASIX) TAB PO SCH ×2 (06:44→18:23)
[2019-08-21] MEDS: KCL 20 MEQ TAB (K-DUR) PO SCH (06:44)
--- NOTE | 2019-08-21 07:17 | Cardiology Progress Note ---
Subjective Date Seen by Provider: Aug 21, 2019 Time Seen by Provider: 07:15 Subjective/Events-last exam Patient is laying down in bed, denied any chest pain, groin is healing well Review of Systems General: No Chills, No Night Sweats, No Fatigue, No Malaise, No Appetite, No Other HEENT: No Head Aches, No Visual Changes, No Eye Pain, No Ear Pain, No Dysphasia, No Sinus Congestion, No Post Nasal Drip, No Sore Throat, No Other Pulmonary: Dyspnea; No Cough, No Pleuritic Chest Pain, No Other Cardiovascular: No: Chest Pain, Palpitations, Orthopnea, Paroxysmal Noc. Dyspnea, Edema, Lt Headedness, Other Objective-Cardiology Exam Last Set of Vital Signs Vital Signs 08/19/19 08/21/19 08/21/19 16:05 04:00 04:39 Temp 36.4 Pulse 82 Resp 18 B/P (MAP) 118/82 (94) Pulse Ox 95 O2 Delivery Nasal Cannula O2 Flow Rate 3.00 Capillary Refill : Less Than 3 Seconds I&O Intake and Output 08/21/19 00:00 Intake Total 1390 ml Output Total 1300 ml Balance 90 ml Intake Oral 390 ml IV Total 1000 ml Output Urine Total 1300 ml General: Alert, Oriented X3, Cooperative, No Acute Distress HEENT: Atraumatic, PERRLA Lungs: Clear to Auscultation, Normal Air Movement Heart: Regular Rate, Normal S1, Normal S2, No Murmurs Abdomen: Normal Bowel Sounds, Soft, No Tenderness, No Hepatosplenomegaly, No Masses Extremities: No Clubbing, No Cyanosis, No Edema, Normal Pulses, No Tenderness/Swelling Skin: No Rashes, No Breakdown, No Significant Lesion Neuro: Normal Gait, Normal Speech, Strength at 5/5 X4 Ext, Normal Tone, Sensation Intact Psych/Mental Status: Mental Status NL, Mood NL Results Lab Laboratory Tests 08/21/19 03:12 A/P-Cardiology Admission Diagnosis Ventricular tachycardia Coronary artery disease Congestive heart failure, chronic compensated left ventricular systolic dysfunction, ischemic cardiomyopathy Hypertension Hyperlipidemia (1) V tach Status: Acute (2) Atrial fibrillation Status: Chronic Qualifiers: Qualified Codes: I48.0 - Paroxysmal atrial fibrillation (3) CAD (coronary artery disease) Status: Chronic Qualifiers: Qualified Codes: I25.708 - Atherosclerosis of coronary artery bypass graft(s), unspecified, with other forms of angina pectoris (4) Essential (primary) hypertension Status: Chronic (5) Hyperlipidemia Status: Chronic Qualifiers: Qualified Codes: E78.2 - Mixed hyperlipidemia Assessment/Plan Coronary artery disease, history of CABG 5 done in 2011, last stress test was done on September 03, 2018 showing diaphragmatic attenuation with no significant ischemia or infarction. Gated images showed ejection fraction 49 percent but patient was in atrial fibrillation on his echo his ejection fraction was 30 percent. Repeat cardiac catheterization was done on August 20, 2019 showing patent vein graft jump graft to the LAD and diagonal, patent vein graft to the first obtuse marginal branch, occluded vein grafts presumably to the right coronary artery and PDA, had a long tubular stenosis in the midright coronary artery up to 60 percent. Medical therapy is recommended Ventricular tachycardia, sustained, seen by Dr. Gallagher, possible ICD implant tomorrow, I'll start him on Lovenox today due to the atrial fibrillation, hold in the morning for ICD and Congestive heart failure, LV systolic dysfunction with EF 30 percent. Likely ischemic in nature. Deterioration compared to the 2013 2-D echocardiogram. Maintained on beta joselyn, ARB, was seen in [place] emergency room with ventricular tachycardia, underwent defibrillation shock, I am planning to proceed with coronary angiogram then possible ICD implant Patient was seen in [place] emergency room on August 14, 2019 with chest pain and wide complex tachycardia, failed Adenosine, he was cardioverted with 100 J return to sinus rhythm with narrow complex, consult Dr. Gallagher Dyspnea on exertion, limited exercise ability. Continue on current medication monitor History of paroxysmal atrial flutter, atrial fibrillation, currently in sinus rhythm. Maintained on Coumadin, INR 1.8, I will start him on Lovenox Labile hypertension, blood pressure currently well controlled, continue to monitor. Hyperlipidemia, maintained on Lipitor, had lab work done recently, I'll obtain copy of the results Baseline EKG abnormality was sinus rhythm, left axis deviation. Left anterior fascicular block. Poor R-wave progression in the anterior leads. Nonobstructive carotid artery stenosis per carotid duplex done June 2018, c ontinue to monitor. Unsteady gait and generalized weakness for which he uses a wheelchair. Clinical Quality Measures DVT/VTE Risk/Contraindication: Risk Factor Score Per Nursin RFS Level Per Nursing on Admit: 4+=Very High BARBARA GUILLEN MD Aug 21, 2019 07:17
--- NOTE | 2019-08-21 07:42 | Pulmonary Consultation ---
JENNIFER DENSON,MED STUDENT 08/21/19 0742: History of Present Illness History of Present Illness Date of Consultation 08/21/19 07:31 Time Seen by Provider: 07:31 Date of Admission Reason for Visit: ventricular tachycardia History of Present Illness patient is a 69 y.o male with a past medical histpry of CAD, CAB x5, ischemic cardiomyopathy, paroxysmal A-fib and HTN who presented to Dr. Schneider's [facility] folow-up for nonsustained V-tach. Patient said that she was seen early this week at [facility] ER because he felt his heart was racing and was found to have a wide complex tachycardia. Per Temi's note, patient was given Adenosine without response and then shocked with 100J before being sent home with normal sinuys rhythm. Patient was advised to follow up with Dr. Membreno's office and seen yesterday by Dr. Membreno who admitted the patient to the ICU following a heart cath and is scheduled to have and ICD put in tomorrow by Dr. Membreno. Dr. Hsu is consult for pulmonary management. ROS: - admits to SOB with exertion, nonproductive cough, swelling in b/l lower legs, weakness and constipation. - denies fever, chills, headache, nausea, vomiting, abdominal pain,diaphoresis, numbness, and tingling. Allergies and Home Medications Allergies Coded Allergies: No Known Drug Allergies (Unverified , 08/05/12) Home Medications Aspirin 81 Mg Tablet.dr, 81 MG PO DAILY, (Reported) Atorvastatin Calcium 40 Mg Tablet, 40 MG PO DAILY, (Reported) Brimonidine Tartrate 5 Ml Drops, 1 DROP OU BID, (Reported) Calcium Carbonate 200 Mg Tab.chew, 1 TAB PO Q6H PRN for HEARTBURN, (Reported) Carvedilol 25 Mg Tab, 25 MG PO BID, (Reported) Furosemide 40 Mg Tablet, 60 MG PO BID, (Reported) Lanolin Alcohol/Mo/W.pet/Vermilion 454 Gm Cream..g., TP HS, (Reported) APPLY TO BLE Latanoprost 2.5 Ml Drops, 1 DROP OU HS, (Reported) Mineral Oil, Light/Mineral Oil 15 Ml Drops, 1 DROP OU QID, (Reported) Potassium Chloride 20 Meq Tablet.er, 20 MEQ PO DAILY, (Reported) Sacubitril/Valsartan 1 Each Tablet, 1 TAB PO BID, (Reported) HOLD IF SBP <100 Warfarin Sodium 2.5 Mg Tablet, 2.5 MG PO MoWeFr, (Reported) Warfarin Sodium 5 Mg Tablet, 5 MG PO SuTuThSa, (Reported) Past Ugilkkd-Snwdyb-Bwmojp Hx Past Med/Social Hx: Reviewed Nursing Past Med/Soc Hx Patient Social History Alcohol Use: Denies Use Recreational Drug Use: No Smoking Status: Never a Smoker Recent Foreign Travel: No Contact w/Someone Who Travel: No Recent Infectious Disease Expo: No Recent Hopitalizations: No Seasonal Allergies Seasonal Allergies: Yes Past Medical History Surgeries: Yes CABG Respiratory: No Cardiac: Yes Atrial Fibrillation, Cardiomyopathy, Coronary Artery Disease, High Cholesterol, Hypertension, Irregular Heartbeat Neurological: No Reproductive Disorders: No Genitourinary: No Gastrointestinal: No Musculoskeletal: No (weakness) Endocrine: No HEENT: No Glaucoma Cancer: No Psychosocial: No Integumentary: Yes (scarring to arms) Blood Disorders: No Adverse Reaction/Blood Tranf: No Family Medical History Reviewed Nursing Family Hx Heart Disease, Cancer, CAD Under 55 Years Old Sepsis Event Evaluation Height, Weight, BMI Height: '" Weight: 213lbs. 0.3oz. 96.461766de; 33.72 BMI Method:Stated Exam Exam Vital Signs Date Time Temp Pulse Resp B/P (MAP) Pulse Ox O2 Delivery O2 Flow Rate FiO2 08/21/19 07:00 73 08/21/19 04:39 82 118/82 (94) 95 Nasal Cannula 3.00 08/21/19 04:00 36.4 08/21/19 01:19 90 08/21/19 00:55 Nasal Cannula 3.00 08/21/19 00:00 76 104/63 (77) 96 Room Air 08/21/19 00:00 36.6 08/20/19 23:00 92 91/69 (76) 96 Room Air 08/20/19 22:00 75 105/69 (81) Room Air 08/20/19 21:00 Nasal Cannula 2.00 08/20/19 21:00 86 145/91 (109) 90 Room Air 08/20/19 20:00 36.1 08/20/19 20:00 87 123/83 (96) 96 Room Air 08/20/19 19:00 87 123/106 (112) 98 Room Air 08/20/19 19:00 87 08/20/19 18:00 92 126/84 (98) 94 Room Air 08/20/19 17:00 85 128/83 (98) 91 Room Air 08/20/19 16:00 90 130/92 (105) 100 Room Air 08/20/19 14:00 106 123/88 (100) 90 Room Air 08/20/19 13:00 96 128/74 (92) 93 Room Air 08/20/19 13:00 84 08/20/19 12:00 94 113/82 (92) 94 Room Air 08/20/19 11:00 76 120/86 (97) 93 Room Air 08/20/19 10:00 96 112/79 (90) 93 Room Air 08/20/19 09:00 97 130/73 (92) 94 Room Air 08/20/19 08:00 Room Air 08/20/19 08:00 37.2 08/20/19 08:00 64 136/89 (105) 93 Room Air I & O 08/21/19 07:00 Intake Total 1240 ml Output Total 1875 ml Balance -635 ml Height & Weight Height: '" Weight: 213lbs. 0.3oz. 96.371368fr; 33.72 BMI Method:Stated General Appearance: No Apparent Distress, Chronically ill, Obese HEENT: Moist Mucous Membranes; No Scleral Icterus (L), No Scleral Icterus (R) Neck: Normal Inspection, Supple; No JVD, No Thyromegaly Respiratory: Chest Non Tender, Lungs Clear, No Accessory Muscle Use, No Respiratory Distress Cardiovascular: Regular Rate, Rhythm, No Gallop, No JVD, No Murmur, Normal Peripheral Pulses Capillary Refill: Less Than 3 Seconds Peripheral Pulses: 2+ Radial Pulses (R), 2+ Radial Pulses (L) Extremity: Non Tender, No Calf Tenderness, Pedal Edema Neurologic/Psychiatric: Alert, Oriented x3, Normal Mood/Affect; No Aphasia, No Facial Droop Skin: Normal Color, Warm/Dry Results Lab Laboratory Tests 08/19/19 14:40 08/21/19 03:12 Assessment/Plan Assessment/Plan Greer with Non-productive cough - Duoneb treatment Q4h - predinosone 60mg PO QD - 3L O2 - CXR - consider lasix if pulmonary edema d/t CHF worsening is suspected an SBP can be maintained >110 V-Tach on monday - Cardiology following CAD and history of CABG x 5 done in 2012 - cardiology following Hx paroxysmal A-Fib/flutter - cardiology following CHF with LV systolic function - cardiology following hyperlipidemia glaucoma JAMSHID HSU DO 08/21/19 0843: Allergies and Home Medications Allergies Coded Allergies: No Known Drug Allergies (Unverified , 08/05/12) Home Medications Aspirin 81 Mg Tablet.dr, 81 MG PO DAILY, (Reported) Atorvastatin Calcium 40 Mg Tablet, 40 MG PO DAILY, (Reported) Brimonidine Tartrate 5 Ml Drops, 1 DROP OU BID, (Reported) Calcium Carbonate 200 Mg Tab.chew, 1 TAB PO Q6H PRN for HEARTBURN, (Reported) Carvedilol 25 Mg Tab, 25 MG PO BID, (Reported) Furosemide 40 Mg Tablet, 60 MG PO BID, (Reported) Lanolin Alcohol/Mo/W.pet/Vermilion 454 Gm Cream..g., TP HS, (Reported) APPLY TO BLE Latanoprost 2.5 Ml Drops, 1 DROP OU HS, (Reported) Mineral Oil, Light/Mineral Oil 15 Ml Drops, 1 DROP OU QID, (Reported) Potassium Chloride 20 Meq Tablet.er, 20 MEQ PO DAILY, (Reported) Sacubitril/Valsartan 1 Each Tablet, 1 TAB PO BID, (Reported) HOLD IF SBP <100 Warfarin Sodium 2.5 Mg Tablet, 2.5 MG PO MoWeFr, (Reported) Warfarin Sodium 5 Mg Tablet, 5 MG PO SuTuThSa, (Reported) Review of Systems Time Seen by Provider: 08:43 Exam Exam General Appearance: No Apparent Distress, Chronically ill HEENT: Moist Mucous Membranes; No Scleral Icterus (L), No Scleral Icterus (R) Neck: Normal Inspection, Supple; No JVD, No Thyromegaly Respiratory: Chest Non Tender, Lungs Clear, No Accessory Muscle Use, No Respiratory Distress Cardiovascular: Regular Rate, Rhythm, No Gallop, No JVD, No Murmur, Normal Peripheral Pulses Extremity: Pedal Edema Neurologic/Psychiatric: Alert, Oriented x3, Normal Mood/Affect; No Aphasia, No Facial Droop Skin: Normal Color, Warm/Dry Assessment/Plan Assessment/Plan SOB -Monitor -Titrate 02 as tolerated -Never smoker -will need ambulatory desat test Vtach while in ED s/p cardioversion -Dr. Moulton planning on placing AICD -S/p Cardiac cath CHF EF 30% -Consider out pt PSG r/o ZURDO JENNIFER DENSON,MED STUDENT Aug 21, 2019 07:42 JAMSHID HSU DO Aug 21, 2019 08:43
[2019-08-21 08:00] VITALS: BP 127/79
--- NOTE | 2019-08-21 08:50 | Progress Note - Hospitalist ---
Subjective HPI/CC On Admission Date Seen by Provider: Aug 21, 2019 Time Seen by Provider: 08:47 patient is 69-year-old male with a past medical history of coronary artery disease status post CABG 5, ischemic cardiomyopathy, paroxysmal atrial fibrillation, and hypertension who presented to Dr. Membreno's office as a follow- up for nonsustained ventricular tachycardia. Patient reports he was seen at [facility] ER because his heart was racing and was found to be in a wide complex tachycardia. Per notes he was given adenosine without resolution and subsequently was cardioverted. This returned him to sinus rhythm and he was advised to follow-up with Dr. Membreno is an outpatient. Dr. Membreno saw the patient yesterday and direct admitted him for further cardiac evaluation. I am consulted for medical management. The only other medical problem the patient to report to me is that he recently had a urinary tract infection. He denies any chest pain, shortness of breath, palpitations,nausea, vomiting, or loss of appetite. Subjective/Events-last exam Pt reports feeling well. No complaints. No groin pain. Plan for ICD tomorrow per Dr Moulton's note. Objective Exam Vital Signs Vital Signs Date Time Temp Pulse Resp B/P (MAP) Pulse Ox O2 Delivery O2 Flow Rate FiO2 08/21/19 07:00 73 08/21/19 04:39 118/82 (94) 95 Nasal Cannula 3.00 08/21/19 04:00 36.4 08/19/19 16:05 18 Capillary Refill : Less Than 3 Seconds General Appearance: No Apparent Distress, Chronically ill, Obese Respiratory: Lungs Clear, No Respiratory Distress Cardiovascular: Regular Rate, Rhythm, No Murmur Gastrointestinal: Normal Bowel Sounds, Soft Extremity: No Calf Tenderness, No Pedal Edema Neurologic/Psychiatric: Alert, Oriented x3, Normal Mood/Affect Results/Procedures Lab Laboratory Tests 08/21/19 03:12 Patient resulted labs reviewed. Imaging: Reviewed Imaging Report Assessment/Plan Assessment and Plan Assess & Plan/Chief Complaint Sustained Ventricular Tachycardia CAD s/p CABG Ischemic Cardiomyopathy with EF 35%- echo done 08/20/19 paroxysmal Atrial Fibrillation Monitor on telemetry Cath yesterday- no intervention, medical management Dr Gallagher consulted for EP- recommended ROSS and cardioversion with ICD placement- likely tomorrow per notes Warfarin held for procedure- INR 1.6 Lovenox started to bridge, to be held tomorrow HTN Well controlled on current regimen, trend HLD Continue statin Discharge planning From [facility] Diagnosis/Problems Diagnosis/Problems (1) Atrial fibrillation Status: Chronic Qualifiers: Atrial fibrillation type: paroxysmal Qualified Codes: I48.0 - Paroxysmal atrial fibrillation (2) CAD (coronary artery disease) Status: Chronic Qualifiers: Coronary Disease-Associated Artery/Lesion type: bypass graft [place] vs. transplanted heart: [place] heart Associated angina: with other forms of angina Qualified Codes: I25.708 - Atherosclerosis of coronary artery bypass graft(s), unspecified, with other forms of angina pectoris (3) Essential (primary) hypertension Status: Chronic (4) Hyperlipidemia Status: Chronic Qualifiers: Hyperlipidemia type: mixed hyperlipidemia Qualified Codes: E78.2 - Mixed hyperlipidemia (5) V tach Status: Acute Clinical Quality Measures DVT/VTE Risk/Contraindication: Risk Factor Score Per Nursin RFS Level Per Nursing on Admit: 4+=Very High Copy Copies To 1: JON LEVINE KATELYN M MD Aug 21, 2019 08:50
[2019-08-21] MEDS: BRIMONIDINE 0.2% (ALPHAGAN) OPHTH SOLN 5 ML BTL OU SCH ×2 (09:19→20:28)
[2019-08-21] MEDS: SACUBITRIL/VALSARTAN 24/26 MG (ENTRESTO) TABLET PO SCH ×2 (09:20→20:27)
[2019-08-21] MEDS: ENOXAPARIN 100 MG/1 ML (LOVENOX) SYR SC SCH ×2 (09:20→19:56)
[2019-08-21] MEDS: CARVEDILOL 12.5 MG (COREG) TABLET PO SCH ×2 (09:20→20:28)
[2019-08-21] MEDS: ASPIRIN E.C. 81 MG (ECOTRIN) TAB PO SCH (09:29)
[2019-08-21 12:00] VITALS: BP 95/59
--- NOTE | 2019-08-21 13:44 | Cardiology Progress Note ---
Cardiology SOAP Progress Note Subjective: No cardiac complaints. Objective: I&O/Vital Signs 08/21/19 08/21/19 08/21/19 08/21/19 04:00 04:39 07:00 08:00 Temp 36.4 36.4 Pulse 82 73 79 Resp 17 B/P (MAP) 118/82 (94) 127/79 (95) Pulse Ox 95 93 O2 Delivery Nasal Cannula Room Air O2 Flow Rate 3.00 08/21/19 09:00 O2 Delivery Room Air 08/21/19 00:00 Intake Total 1240 ml Output Total 1000 ml Balance 240 ml Weight (Pounds): 213 Weight (Ounces): 0.3 Weight (Calculated Kilograms): 96.422227 Constitutional: appears stated age, AAO x 3, well-developed, well-nourished Respiratory: chest is bilaterally symmetric, lungs clear to auscultation Cardiovascular: irregularly irregular, S1 and S2 Gastrointestional: soft, round, audible bowel sounds Extremities: normal range of motion, non-tender, normal inspection, no lower extremity edema bilateral Neurologic/Psychiatric: no motor/sensory deficits, alert, normal mood/affect, oriented x 3, power is 5/5 both on sides Skin: normal color Results/Procedures: Labs Laboratory Tests 08/21/19 03:12: White Blood Count 8.2, Red Blood Count 4.50, Hemoglobin 13.1L, Hematocrit 41, Mean Corpuscular Volume 90, Mean Corpuscular Hemoglobin 29, Mean Corpuscular Hemoglobin Concent 32, Red Cell Distribution Width 17.2H, Platelet Count 225, Mean Platelet Volume 9.4, Prothrombin Time 19.8H, INR Comment 1.6H, Sodium Level 142, Potassium Level 3.8, Chloride Level 105, Carbon Dioxide Level 24, Anion Gap 13, Blood Urea Nitrogen 17, Creatinine 0.91, Estimat Glomerular Filtration Rate > 60, BUN/Creatinine Ratio 19, Glucose Level 116H, Calcium Level 8.4L A/P: Assessment/Dx: Sustained VT, Atrial fibrillation with controlled ventricular rate Chest pain, History of CAD/CABG, Ischemic cardiomyopathy Plan: This is a 69-year-old gentleman with known history of CAD, CABG, ischemic cardiomyopathy who presented with unstable sustained ventricular tachycardia with chest pain and diaphoresis requiring defibrillation which converted to sinus rhythm. Hold Coumadin. Continue high-dose beta joselyn. Coronary evaluation done 08/20/[address] Moulton No antiarrhythmics at this point in time. Will likely require transesophageal echocardiogram assisted cardioversion followed by dual-chamber ICD implantation once INR is within acceptable limits. ICD is recommended for secondary prevention likely . EKG dated 08/14/2019 at 9:23 a.m. shows sinus rhythm with narrow QRS. QRS duration is 80 ms. RESIN SHAVER therapy is not recommended. Atrial fibrillation with controlled ventricular rate, transesophageal echocardiogram assisted cardioversion. Rhythm control strategy. Ischemic cardiomyopathy, defer to Dr. Moulton. Preliminary echocardiogram shows an EF of 30-35 percent, global hypokinesis. CAD/CABG, defer to Dr. Moulton. Coronary angiography 08/20/2019. Thank you for your consultation. Please call me if you have any questions. Kaushik Gallagher MD, FACP, FACC, FSCAI, FHRS, CCDS Interventional Cardiology Cardiac Electrophysiology Vascular Medicine and Endovascular Interventions Tarah GALLAGHER MD Aug 21, 2019 13:44
[2019-08-21 16:00] VITALS: BP 112/70
[2019-08-21 20:00] VITALS: BP 118/72
[2019-08-21] MEDS: LATANOPROST 0.005% (XALATAN) OPHTH SOLN 2.5 ML OU SCH (20:28)
[2019-08-22] VITALS (14 sets, daily range): BP systolic 67–138; BP diastolic 32–94
[2019-08-22 03:29] LABS: INR 1.4 (0.8-1.4); PROTHROMBIN TIME PATIENT 17.4 SEC (12.2-14.7)
[2019-08-22] MEDS: KCL 20 MEQ TAB (K-DUR) PO SCH (06:36)
[2019-08-22] MEDS: FUROSEMIDE 40 MG (LASIX) TAB PO SCH ×2 (06:37→18:20)
[2019-08-22] MEDS: ENOXAPARIN 100 MG/1 ML (LOVENOX) SYR SC SCH ×2 (06:37→19:46)
--- NOTE | 2019-08-22 08:23 | Cardiology Progress Note ---
Subjective Date Seen by Provider: Aug 22, 2019 Time Seen by Provider: 08:21 Subjective/Events-last exam Patient is laying down in bed, denied any chest pain, no shortness of breath. Review of Systems General: No Chills, No Night Sweats, No Fatigue, No Malaise, No Appetite, No Other HEENT: No Head Aches, No Visual Changes, No Eye Pain, No Ear Pain, No Dysphasia, No Sinus Congestion, No Post Nasal Drip, No Sore Throat, No Other Pulmonary: No Dyspnea, No Cough, No Pleuritic Chest Pain, No Other Cardiovascular: No: Chest Pain, Palpitations, Orthopnea, Paroxysmal Noc. Dyspnea, Edema, Lt Headedness, Other Objective-Cardiology Exam Last Set of Vital Signs Vital Signs 08/22/19 08/22/19 01:47 08:00 Pulse 101 Resp 22 B/P (MAP) 136/94 (108) Pulse Ox 96 O2 Delivery Nasal Cannula O2 Flow Rate 2.00 Capillary Refill : Less Than 3 Seconds I&O Intake and Output 08/22/19 00:00 Intake Total 610 ml Output Total 1525 ml Balance -915 ml Intake Oral 610 ml Output Urine Total 1525 ml General: Alert, Oriented X3, Cooperative, No Acute Distress HEENT: Atraumatic, PERRLA Neck: No JVD Lungs: Clear to Auscultation, Normal Air Movement Heart: Normal S1, Normal S2, No Murmurs, Other (Atrial fibrillation) Abdomen: Normal Bowel Sounds, Soft, No Tenderness, No Hepatosplenomegaly, No Masses Extremities: No Clubbing, No Cyanosis, No Edema, Normal Pulses, No Tenderness/Swelling Skin: No Rashes, No Breakdown, No Significant Lesion Neuro: Normal Gait, Normal Speech, Strength at 5/5 X4 Ext, Normal Tone, Sensation Intact Psych/Mental Status: Mental Status NL, Mood NL Results Lab Laboratory Tests Test 08/22/19 02:35 Range/Units Prothrombin Time 17.4 H 12.2-14.7 SEC INR Comment 1.4 0.8-1.4 A/P-Cardiology Admission Diagnosis Ventricular tachycardia Coronary artery disease Congestive heart failure, chronic compensated left ventricular systolic dysfunction, ischemic cardiomyopathy Hypertension Hyperlipidemia (1) V tach Status: Acute (2) Atrial fibrillation Status: Chronic Qualifiers: Qualified Codes: I48.0 - Paroxysmal atrial fibrillation (3) CAD (coronary artery disease) Status: Chronic Qualifiers: Qualified Codes: I25.708 - Atherosclerosis of coronary artery bypass graft(s), unspecified, with other forms of angina pectoris (4) Essential (primary) hypertension Status: Chronic (5) Hyperlipidemia Status: Chronic Qualifiers: Qualified Codes: E78.2 - Mixed hyperlipidemia Assessment/Plan Coronary artery disease, history of CABG 5 done in 2011, last stress test was done on September 03, 2018 showing diaphragmatic attenuation with no significant ischemia or infarction. Gated images showed ejection fraction 49 percent but patient was in atrial fibrillation on his echo his ejection fraction was 30 percent. Repeat cardiac catheterization was done on August 20, 2019 showing patent vein graft jump graft to the LAD and diagonal, patent vein graft to the first obtuse marginal branch, occluded vein grafts presumably to the right coronary artery and PDA, had a long tubular stenosis in the midright coronary artery up to 60 percent. Medical therapy is recommended Paroxysmal atrial fibrillation/flutter, patient is having ROSS and cardioversion today then proceeding with ICD implant, seen and followed by Dr. Gallagher Ventricular tachycardia, sustained, seen by Dr. Gallagher, possible ICD implant t omorrow, I'll start him on Lovenox today due to the atrial fibrillation, hold in the morning for ICD and Congestive heart failure, LV systolic dysfunction with EF 30 percent. Likely ischemic in nature. Deterioration compared to the 2013 2-D echocardiogram. Maintained on beta joselyn, ARB, was seen in [facility] emergency room with ventricular tachycardia, underwent defibrillation shock, I am planning to proceed with coronary angiogram then possible ICD implant Patient was seen in [facility] emergency room on August 14, 2019 with chest pain and wide complex tachycardia, failed Adenosine, he was cardioverted with 100 J return to sinus rhythm with narrow complex, consult Dr. Gallagher Dyspnea on exertion, limited exercise ability. Continue on current medication monitor Labile hypertension, blood pressure currently well controlled, continue to monitor. Hyperlipidemia, maintained on Lipitor, had lab work done recently, I'll obtain copy of the results Baseline EKG abnormality was sinus rhythm, left axis deviation. Left anterior fascicular block. Poor R-wave progression in the anterior leads. Nonobstructive carotid artery stenosis per carotid duplex done June 2018, continue to monitor. Unsteady gait and generalized weakness for which he uses a wheelchair. Clinical Quality Measures DVT/VTE Risk/Contraindication: Risk Factor Score Per Nursin RFS Level Per Nursing on Admit: 4+=Very High BARBARA GUILLEN MD Aug 22, 2019 08:22
[2019-08-22] MEDS ORDERED: LIDOCAINE 1% INJ 20 ML 20 ML VIAL ONE (08:27)
[2019-08-22] MEDS ORDERED: HEParin (CATH LAB) 1,000 ML IV ONE (08:27)
[2019-08-22] MEDS ORDERED: ceFAZolin INJECTION 1,000 MG VIAL IV ONE (08:30)
[2019-08-22] MEDS ORDERED: BACITRACIN INJECTION 50,000 UNIT, SODIUM CHLORIDE 0.9% IRRIGATIO 500 ML IR ONE ×2 (08:30)
[2019-08-22] MEDS ORDERED: ceFAZolin INJECTION 0 MG ONE (08:38)
[2019-08-22] MEDS ORDERED: NS (IVPB) 0 ML ONE (08:39)
[2019-08-22] MEDS: SACUBITRIL/VALSARTAN 24/26 MG (ENTRESTO) TABLET PO SCH ×2 (08:46→20:24)
[2019-08-22] MEDS: ASPIRIN E.C. 81 MG (ECOTRIN) TAB PO SCH (08:46)
[2019-08-22] MEDS: CARVEDILOL 12.5 MG (COREG) TABLET PO SCH ×2 (08:47→20:24)
[2019-08-22] MEDS: BRIMONIDINE 0.2% (ALPHAGAN) OPHTH SOLN 5 ML BTL OU SCH ×2 (08:55→20:24)
[2019-08-22] MEDS: NS IV 1000 ML 1,000 ML IV SCH ×2 (08:55→18:16)
--- NOTE | 2019-08-22 09:49 | Pulmonary Progress Note ---
Sepsis Event Evaluation Height, Weight, BMI Height: '" Weight: 213lbs. 0.3oz. 96.839192pg; 33.72 BMI Method:Stated Exam Exam Vital Signs Date Time Temp Pulse Resp B/P (MAP) Pulse Ox O2 Delivery O2 Flow Rate FiO2 08/22/19 08:00 101 136/94 (108) 96 Nasal Cannula 2.00 08/22/19 07:00 88 08/22/19 04:00 36.3 08/22/19 04:00 109/58 (75) Nasal Cannula 2.00 08/22/19 01:47 95 22 113/85 (94) 98 Nasal Cannula 2.00 08/22/19 01:45 88 Room Air 08/22/19 01:27 83 08/22/19 00:00 36.6 73 18 94/62 (73) 94 Room Air 08/21/19 21:00 94 Room Air 08/21/19 20:00 36.4 96 21 118/72 (87) 93 Room Air 08/21/19 19:00 92 08/21/19 16:00 36.6 76 19 112/70 (84) 92 Room Air 08/21/19 14:10 100 Nasal Cannula 2.00 08/21/19 13:00 86 08/21/19 12:00 82 95/59 (71) 93 Nasal Cannula 3.00 08/21/19 12:00 36.2 I & O 08/22/19 07:00 Intake Total 610 ml Output Total 1100 ml Balance -490 ml Height & Weight Height: '" Weight: 213lbs. 0.3oz. 96.837721qb; 33.72 BMI Method:Stated General Appearance: No Apparent Distress, Chronically ill, Obese HEENT: Moist Mucous Membranes; No Scleral Icterus (L), No Scleral Icterus (R) Neck: Normal Inspection, Supple; No JVD, No Thyromegaly Respiratory: Chest Non Tender, Lungs Clear, No Accessory Muscle Use, No Respiratory Distress Cardiovascular: Regular Rate, Rhythm, No Gallop, No JVD, No Murmur, Normal Peripheral Pulses Capillary Refill: Less Than 3 Seconds Peripheral Pulses: 2+ Radial Pulses (R), 2+ Radial Pulses (L) Extremity: Non Tender, No Calf Tenderness, Pedal Edema Neurologic/Psychiatric: Alert, Oriented x3, Normal Mood/Affect; No Aphasia, No Facial Droop Skin: Normal Color, Warm/Dry Results Lab Laboratory Tests 08/21/19 03:12 Assessment/Plan Assessment/Plan SOB - Duoneb Q4h -CXR is negative - 3L O2 V-Tach on monday CAD and history of CABG x 5 done in 2011 Hx paroxysmal A-Fib/flutter CHF with LV systolic function - cardiology following hyperlipidemia glaucoma JAMSHID MILLIGAN DO Aug 22, 2019 09:49
--- NOTE | 2019-08-22 13:17 | Progress Note - Hospitalist ---
Subjective HPI/CC On Admission Date Seen by Provider: Aug 22, 2019 Time Seen by Provider: 13:15 patient is 69-year-old male with a past medical history of coronary artery disease status post CABG 5, ischemic cardiomyopathy, paroxysmal atrial fibrillation, and hypertension who presented to Dr. Membreno's office as a follow- up for nonsustained ventricular tachycardia. Patient reports he was seen at [facility] ER because his heart was racing and was found to be in a wide complex tachycardia. Per notes he was given adenosine without resolution and subsequently was cardioverted. This returned him to sinus rhythm and he was advised to follow-up with Dr. Membreno is an outpatient. Dr. Membreno saw the patient yesterday and direct admitted him for further cardiac evaluation. I am consulted for medical management. The only other medical problem the patient to report to me is that he recently had a urinary tract infection. He denies any chest pain, shortness of breath, palpitations,nausea, vomiting, or loss of appetite. Subjective/Events-last exam Pt has no complaints. Nervous but ready for procedure today. Objective Exam Vital Signs Vital Signs Date Time Temp Pulse Resp B/P (MAP) Pulse Ox O2 Delivery O2 Flow Rate FiO2 08/22/19 12:32 81 08/22/19 12:00 36.9 08/22/19 12:00 128/85 (99) 94 Nasal Cannula 2.00 08/22/19 01:47 22 Capillary Refill : Less Than 3 Seconds General Appearance: No Apparent Distress, WD/WN, Obese Respiratory: Lungs Clear, No Respiratory Distress Cardiovascular: No Murmur, Irregularly Irregular Gastrointestinal: Normal Bowel Sounds, Soft Neurologic/Psychiatric: Alert, Oriented x3 Results/Procedures Lab Patient resulted labs reviewed. Imaging: Reviewed Imaging Report Assessment/Plan Assessment and Plan Assess & Plan/Chief Complaint Sustained Ventricular Tachycardia CAD s/p CABG Ischemic Cardiomyopathy with EF 35%- echo done 08/20/19 paroxysmal Atrial Fibrillation Monitor on telemetry Cath yesterday- no intervention, medical management Dr Gallagher consulted for EP- recommended ROSS and cardioversion with ICD placement this afternoon Warfarin held for procedure HTN Well controlled on current regimen, trend HLD Continue statin [facility] Diagnosis/Problems Diagnosis/Problems (1) Atrial fibrillation Status: Chronic Qualifiers: Atrial fibrillation type: paroxysmal Qualified Codes: I48.0 - Paroxysmal atrial fibrillation (2) CAD (coronary artery disease) Status: Chronic Qualifiers: Coronary Disease-Associated Artery/Lesion type: bypass graft [place] vs. transplanted heart: [place] heart Associated angina: with other forms of angina Qualified Codes: I25.708 - Atherosclerosis of coronary artery bypass graft(s), unspecified, with other forms of angina pectoris (3) Essential (primary) hypertension Status: Chronic (4) Hyperlipidemia Status: Chronic Qualifiers: Hyperlipidemia type: mixed hyperlipidemia Qualified Codes: E78.2 - Mixed hyperlipidemia (5) V tach Status: Acute Clinical Quality Measures DVT/VTE Risk/Contraindication: Risk Factor Score Per Nursin RFS Level Per Nursing on Admit: 4+=Very High MYRTLE MANSFIELD MD Aug 22, 2019 1:17 pm
[2019-08-22] MEDS ORDERED: proPOfol 200 MG/20 ML (DIPRIVAN) VIAL IV ONE ×3 (13:19→16:39)
[2019-08-22] MEDS ORDERED: MIDAZOLAM 2 MG/2 ML (VERSED) VIAL ONE ×2 (13:19→14:40)
[2019-08-22] MEDS ORDERED: LIDOCAINE 2% VISCOUS 15 ML UDC ONE (13:20)
--- NOTE | 2019-08-22 14:24 | Cardiology Progress Note ---
Cardiology SOAP Progress Note Subjective: No further cardiac symptoms. Objective: I&O/Vital Signs 08/22/19 08/22/19 08/22/19 08/22/19 04:00 04:00 07:00 08:00 Temp 36.3 Pulse 88 101 B/P (MAP) 109/58 (75) 136/94 (108) Pulse Ox 96 O2 Delivery Nasal Cannula Nasal Cannula O2 Flow Rate 2.00 2.00 08/22/19 08/22/19 08/22/19 08/22/19 08:00 09:00 12:00 12:00 Temp 36.8 36.9 Pulse 85 B/P (MAP) 128/85 (99) Pulse Ox 95 94 O2 Delivery Room Air Nasal Cannula O2 Flow Rate 2.00 08/22/19 12:32 Pulse 81 08/22/19 00:00 Intake Total 610 ml Output Total 650 ml Balance -40 ml Weight (Pounds): 213 Weight (Ounces): 0.3 Weight (Calculated Kilograms): 96.810650 Constitutional: appears stated age, AAO x 3, well-developed, well-nourished Respiratory: chest is bilaterally symmetric, lungs clear to auscultation Cardiovascular: irregularly irregular, S1 and S2 Gastrointestional: soft, round, audible bowel sounds Extremities: normal range of motion, non-tender, normal inspection, no lower extremity edema bilateral Neurologic/Psychiatric: no motor/sensory deficits, alert, normal mood/affect, oriented x 3, power is 5/5 both on sides Skin: normal color Results/Procedures: Labs Laboratory Tests 08/22/19 02:35: Prothrombin Time 17.4H, INR Comment 1.4 A/P: Assessment/Dx: Sustained VT, Atrial fibrillation with controlled ventricular rate Chest pain, History of CAD/CABG, Ischemic cardiomyopathy Plan: This is a 69-year-old gentleman with known history of CAD, CABG, ischemic cardiomyopathy who presented with unstable sustained ventricular tachycardia with chest pain and diaphoresis requiring defibrillation which converted to sinus rhythm. Hold Coumadin. Continue high-dose beta joselyn. Coronary evaluation done 08/20/[address] Moulton. No antiarrhythmics at this point in time. Transesophageal echocardiogram assisted cardioversion today followed by dual-chamber ICD implantation. INR 1.4 today. EKG dated 08/14/2019 at 9:23 a.m. shows sinus rhythm with narrow QRS. QRS duration is 80 ms. SOIL SORT WORKER therapy is not recommended. Atrial fibrillation with controlled ventricular rate, transesophageal echo cardiogram assisted cardioversion. Rhythm control strategy. Ischemic cardiomyopathy, defer to Dr. Moulton. Preliminary echocardiogram shows an EF of 30-35 percent, global hypokinesis. CAD/CABG, defer to Dr. Moulton. Coronary angiography 08/20/2019. Thank you for your consultation. Please call me if you have any questions. Kaushik Gallagher MD, FACP, FACC, FSCAI, FHRS, CCDS Interventional Cardiology Cardiac Electrophysiology Vascular Medicine and Endovascular Interventions Tarah GALLAGHER MD Aug 22, 2019 14:24
[2019-08-22] MEDS ORDERED: NS IV 1000 ML 1,000 ML ONE (14:37)
[2019-08-22] MEDS ORDERED: ceFAZolin INJECTION 2,000 MG ONE (14:42)
[2019-08-22] MEDS ORDERED: NS (IVPB) 50 ML ONE (14:43)
[2019-08-22] MEDS ORDERED: MIDAZOLAM 5 MG/5 ML (VERSED) VIAL ONE (14:46)
[2019-08-22] MEDS ORDERED: fentaNYL INJECTION 100 MCG/2 ML AMP ONE (14:46)
--- NOTE | 2019-08-22 15:11 | Progress Note ---
Standard Progress Note Progress Notes/Assess & Plan Date Seen by a Provider: Aug 23, 2019 Time Seen by a Provider: 14:51 Progress/Assessment & Plan sedation for yazmin/cardioversion. asa4. 70mg propofol and 2mg versed given. start time 1451 end time 1500 ASTRID MILLER CRNA Aug 22, 2019 15:11
[2019-08-22] MEDS ORDERED: LIDOCAINE 2% VISCOUS 15 ML UDC PO ONE (15:15)
--- NOTE | 2019-08-22 15:37 | Cardioversion ---
Cardioversion PROCEDURE PHYSICIAN: Kaushki Gallagher MD DATE OF PROCEDURE: 08/22/19 DIRECT EXTERNAL ELECTRICAL CARDIOVERSION: Indications: Atrial Fibrillation with controlled ventricular rate. Preoperative diagnoses: Atrial Fibrillation with controlled ventricular rate Postoperative diagnosis: Atrial fibrillation, unsuccessful Electrical Cardioversion History: This is a 69-year-old gentleman with history of monomorphic sustained VT requiring defibrillation. Ischemic cardiomyopathy with an EF of 30-35 percent. Recently the patient was in sinus rhythm but currently in atrial fibrillation with controlled ventricular rate. Anesthesia: By Anesthesia services Complications: None Specimen: None Contrast: 0 Flouroscopy: none Procedure Details: The patient was brought the ear mold laboratory technician after informed consent was taken, all the risks and complications were explained including the risk of stroke. Electrical cardioversion was carried out with anesthesia support with propofol. 200 joules of synchronized shock was delivered through external patches x3 which did not restore sinus rhythm. The patient tolerated the procedure well. Conclusions: 1.unsuccessful cardioversion. Kaushik Gallagher MD, RS, CCDS Cardiac Electrophysiology Tarah GALLAGHER MD Aug 22, 2019 15:37
[2019-08-22] MEDS ORDERED: NEO/POLY/BAC (NEOSPORIN) OINT 15 GM TUBE ONE (17:08)
--- NOTE | 2019-08-22 17:11 | ICD Implantation ---
Single Chamber ICD Implant DATE OF SERVICE: 08/22/2019 DUAL CHAMBER ICD IMPLANTATION REFERRING RN CARDIAC CATH: Kit Moulton MD CARDIAC CAVING GUIDE: Kaushik Gallagher MD INDICATION: Sustained VT with hemodynamic compromise. PREOPERATIVE DIAGNOSES: Sustained VT with hemodynamic compromise. POSTOPERATIVE DIAGNOSES: Successful dual-chamber ICD implantation. HISTORY: This is a 69-year-old gentleman with history of ischemic cardiomyopathy with an EF of 30-35 percent. He presented to outside ER with sustained monomorphic VT requiring defibrillation due to hemodynamic compromise. He was converted to sinus rhythm. He saw Dr. Moulton in the office and was found to be in atrial fibrillation as well. He was admitted. Coronary angiography was done which did not show any evidence of acute IL. Secondary prevention for sudden cardiac is recommended. Earlier today transesophageal echocardiogram was done which did not show any thrombus in the left atrium or left atrial appendage. However severe mitral regurgitation was noted. Cardioversion 3 was unsuccessful. However since rhythm control strategy is what we will pursue therefore dual-chamber ICD implantation is recommended. PROCEDURE PERFORMED: 1. Dual chamber ICD implantation. 2. DFT testing. COMPLICATIONS: None. ESTIMATED BLOOD LOSS: 20 mL. SPECIMENS: None. ANESTHESIA: Conscious sedation. ORAL ANTICOAGULATION: None. FLUOROSCOPY TIME: 5 minutes. FLUOROSCOPY DOSE: 36 mgy. CONTRAST DOSE: none. PROCEDURE DETAILS: After all the questions were answered, an informed consent was taken. All the risks and complication were explained in detail. The patient was brought to the EP lab. The patient's right and left chest was prepped and draped in the usual sterile fashion. A 2-inch horizontal incision was made 1 cm below the clavicle and dissection carried down to the pectoralis fascia. IV antibiotics were administered prior to first incision. Under fluoroscopic guidance, access was gained in the axillary vein twice and two regular J-wires were placed. We then introduced a sheath into the axillary vein. A ICD lead was inserted. This is a single-coiled ICD lead. The RV lead was inserted across the tricuspid valve to an apical septal portion of the RV. The lead position was checked in EMIGDIO and CRABTREE view. The screw was deployed and lead connected to the mainframe programmer analyst. Good sensing and pacing thresholds were obtained. Diaphragmatic pacing was ruled out. The lead was secured with 2-0 Vicryl nonabsorbable sutures. The lead was secured to the underlying muscle and fascia. Through the second wire, another sheath was inserted. Atrial lead was inserted and the screw deployed when we thought the the tip was in the Right atrial appendage. The patient was in atrial fibrillation. Good sensing and impedances were obtained, however further testing was not done since the patient was in AF. The lead was secured with 2-0 Vicryl nonabsorbable sutures. The lead was secured to the underlying muscle and fascia We then took an ICD generator and the lead was connected to the device in a hermetic fashion. The device and it was placed in the pocket. Aggressive irrigation with normal saline solution was done. Interrogation of the device revealed good integrity of the leads and connection. The wound was closed using 2 layers. The first layer was an interrupted 2-0 Vicryl. The second layer was an uninterrupted 4-0 Vicryl suture. Half inch Steri-Strips and a small dressing was then applied to the wound. DFT testing was done with anesthesia support. The induction mechanism was a T- shock. VF was induced. Cycle length 169 ms. Charge time 5.4 seconds. Appropriate sensing and 25 J shock terminated the tachycardia. DEVICE INFORMATION: Ilivia 7 DR-T Status Overloadronik. Reference number [id number], serial number [id number]. PID 54. Right atrial lead Solia S 53, Biotronik, reference number [id number], serial number [id number]. RV lead, Plexa ProMRI S 65, Biotronik, reference number [id number], serial number [id number]. INTRAOPERATIVE DEVICE TESTING: Right atrial sensing, atrial flutter. Impedance 556 ohms. Capture threshold not checked. RV sensing 10.5 mV, impedance 543 ohms, capture threshold 0.3 V at 0.5 ms. DEVICE INTERROGATION IMMEDIATELY POSTOP: Right atrial sensing 2.0 mV, atrial flutter, impedance 523 ohms. Capture threshold was not done. RV sensing 15.2 mV, impedance 508 ohms, threshold 0.3 V at 0.4 ms. DDI 601 30, PAV 160 ms. VT monitor zone at 150 BPM. VT 2 at 162 bpm ATP x 6 burst, 25 J, 35J, 40J. VF zone at 207 bpm. PLAN: The patient will be observed for 23 hours. We will continue with two more dosages of IV antibiotics. We will check a chest x-ray and interrogate the de vice in the morning. An EKG will be done as well. If everything checks out, the patient will be discharged tomorrow. Kaushik Gallagher MD, [facility], CCDS Cardiac Electrophysiology Tarah GALLAGHER MD Aug 22, 2019 17:11
[2019-08-22] MEDS ORDERED: NS IV 1000 ML 1,000 ML IV SCH (17:12)
--- NOTE | 2019-08-22 17:12 | Cardiac Procedure Note-CS/ASA ---
Pre-Procedure Note Pre-Op Procedure Note H&P Reviewed The H&P was reviewed, patient examined and no changes noted. Date H&P Reviewed: Aug 22, 2019 Time H&P Reviewed: 12:55 Conscious Sedation Pre-Proced Time 12:55 ASA Score 3 For ASA 3 and 4: Consider anesthesia and medical clearance. Also, for patients with a history of failed moderate sedation consider anesthesia. Airway Lungs Heart ASA score ASA 1: a normal healthy patient ASA 2: a patient with a mild systemic disease (mid diabetes, controlled hypertension, obesity ASA 3: a patient with a severe systemic disease that limits activity (angina, COPD, prior Myocardial infarction) ASA 4: a patient with an incapacitating disease that is a constant threat to life (CHF, renal failure) ASA 5: a moribund patient not expected to survive 24 hrs. (ruptured aneurysm) ASA 6: a declared brain- patient whose organs are being harvested. For emergent operations, add the letter E after the classification Mallampati Classification Grade 1 Sedation Plan Analgesia, Amnesia, Plan communicated to team members, Discussed options with patient/fam, Discussed risks with patient/fam The patient is an appropriate candidate to undergo the planned procedure, sedation, and anesthesia. The patient immediately re-assessed prior to indication. Tarah GAYLE MD Aug 22, 2019 17:12
[2019-08-22] MEDS ORDERED: PATIENT MAY USE OWN MEDS, ALL PO SCH (17:15)
--- NOTE | 2019-08-22 17:16 | Progress Note ---
Standard Progress Note Progress Notes/Assess & Plan Date Seen by a Provider: Aug 22, 2019 Time Seen by a Provider: 16:45 Progress/Assessment & Plan sedation for dft. asa4. 50mg propofol and given. start time 1655 end time 1710 ASTRID MILLER CRNA Aug 22, 2019 17:16
--- NOTE | 2019-08-22 17:57 | Diagnostic Imaging Report ---
INDICATION: Post pacemaker placement. FINDINGS: Pacemaker is present in the left. Leads appear in good position. The lungs are well-aerated. No pneumothorax or pleural effusion. There is cardiomegaly with median sternotomy changes. IMPRESSION: Satisfactory appearing pacemaker placement. Dictated by: Dictated on workstation # [id number]
[2019-08-22] MEDS: AMIODARONE 200 MG (CORDARONE) TAB PO SCH (20:24)
[2019-08-22] MEDS: LATANOPROST 0.005% (XALATAN) OPHTH SOLN 2.5 ML OU SCH (20:24)
[2019-08-22] MEDS: ceFAZolin INJECTION 1,000 MG in WATER (STERILE) FOR INJECTION 10 ML IV SCH (22:51)
[2019-08-23] VITALS: BP 130/55
[2019-08-23] MEDS: NS IV 1000 ML 1,000 ML IV SCH ×2 (03:38→13:44)
[2019-08-23 04:00] VITALS: BP 135/86
[2019-08-23 04:04] LABS: HEMOGLOBIN 11.3 G/DL (13.3-17.7); MEAN PLATELET VOLUME 10.3 FL (7.4-10.4); RED CELL DISTRIBUTION WIDTH 17.1 % (10.0-14.5); WHITE BLOOD COUNT 8.1 10^3/uL (4.3-11.0)
[2019-08-23 04:21] LABS: ALANINE AMINOTRANSFERASE 21 U/L (0-55); ALBUMIN 3.4 GM/DL (3.2-4.5); ALKALINE PHOSPHATASE 112 U/L (40-136); BILIRUBIN,TOTAL 1.3 MG/DL (0.1-1.0); BUN/CREATININE RATIO 20; CALCIUM 8.1 MG/DL (8.5-10.1); CARBON DIOXIDE 24 MMOL/L (21-32); CHLORIDE 106 MMOL/L (98-107); CREATININE SERUM 0.93 MG/DL (0.60-1.30); GFR ESTIMATED > 60; GLUCOSE 110 MG/DL (70-105); POTASSIUM 3.8 MMOL/L (3.6-5.0); SODIUM 142 MMOL/L (135-145); TOTAL PROTEIN 6.7 GM/DL (6.4-8.2)
[2019-08-23 04:25] LABS: INR 1.4 (0.8-1.4); PROTHROMBIN TIME PATIENT 17.8 SEC (12.2-14.7)
--- NOTE | 2019-08-23 05:25 | Pulmonary Progress Note ---
Subjective Time Seen by a Provider: 05:25 Subjective/Events-last exam s/p post AICD Sepsis Event Evaluation Height, Weight, BMI Height: '67.00" Weight: 210lbs. 0.3oz. 96.768834cf; 33.72 BMI Method:Stated Exam Exam Vital Signs Date Time Temp Pulse Resp B/P (MAP) Pulse Ox O2 Delivery O2 Flow Rate FiO2 08/23/19 04:00 135/86 (102) 89 Room Air 08/23/19 03:36 36.4 08/23/19 00:46 84 08/23/19 00:00 130/55 (80) 94 Room Air 08/23/19 00:00 36.1 08/22/19 23:00 128/78 (95) 93 Room Air 08/22/19 22:00 88/69 (75) 94 Room Air 08/22/19 21:45 0.00 08/22/19 21:00 137/75 (95) 93 Room Air 08/22/19 21:00 95 Room Air 08/22/19 20:00 136/83 (100) Room Air 08/22/19 19:30 36.5 08/22/19 19:30 138/69 (92) Room Air 08/22/19 19:03 98 08/22/19 19:00 99/83 (88) Room Air 08/22/19 18:00 36.6 08/22/19 15:13 88 25 81/55 (64) 94 Nasal Cannula 4.00 08/22/19 15:07 97 Nasal Cannula 4.00 35 08/22/19 15:05 79 14 67/32 (44) 96 Nasal Cannula 08/22/19 14:57 87 20 85/71 (76) 97 Nasal Cannula 4.00 08/22/19 12:32 81 08/22/19 12:00 36.9 08/22/19 12:00 85 128/85 (99) 94 Nasal Cannula 2.00 08/22/19 09:00 95 Room Air 08/22/19 08:00 36.8 08/22/19 08:00 101 136/94 (108) 96 Nasal Cannula 2.00 08/22/19 07:00 88 I & O 08/23/19 07:00 Intake Total 1310 ml Output Total 750 ml Balance 560 ml Height & Weight Height: '67.00" Weight: 210lbs. 0.3oz. 96.671724io; 33.72 BMI Method:Stated General Appearance: No Apparent Distress, WD/WN, Obese HEENT: Moist Mucous Membranes; No Scleral Icterus (L), No Scleral Icterus (R) Neck: Normal Inspection, Supple; No JVD, No Thyromegaly Respiratory: Lungs Clear, No Respiratory Distress Cardiovascular: No Murmur, Irregularly Irregular Capillary Refill: Less Than 3 Seconds Peripheral Pulses: 2+ Radial Pulses (R), 2+ Radial Pulses (L) Extremity: Non Tender, No Calf Tenderness, Pedal Edema Neurologic/Psychiatric: Alert, Oriented x3 Skin: Normal Color, Warm/Dry Results Lab Laboratory Tests 08/23/19 02:50 Assessment/Plan Assessment/Plan SOB - Duoneb Q4h -CXR is negative - 3L O2 Probable ZURDO with nocturnal hypoxia -Pt will need out pt PSG. -medicare usually requires PSG prior to nocturnal oxygen setup unless he christelle ats to 88% with exertion. -PSG has to be done as out pt. -I will see him in my office next week for complete workup. V-Tach on Monday now s/p AICD CAD and history of CABG x 5 done in 2011 Hx paroxysmal A-Fib/flutter CHF with LV systolic function - cardiology following hyperlipidemia glaucoma JAMSHID MILLIGAN DO Aug 23, 2019 05:25
[2019-08-23] MEDS: ceFAZolin INJECTION 1,000 MG in WATER (STERILE) FOR INJECTION 10 ML IV SCH ×2 (06:33→14:08)
[2019-08-23] MEDS: KCL 20 MEQ TAB (K-DUR) PO SCH (06:34)
[2019-08-23] MEDS: FUROSEMIDE 40 MG (LASIX) TAB PO SCH ×2 (06:34→18:02)
[2019-08-23] MEDS: ENOXAPARIN 100 MG/1 ML (LOVENOX) SYR SC SCH ×2 (06:57→18:57)
[2019-08-23 08:00] VITALS: BP 148/82
[2019-08-23] MEDS ORDERED: DIGOXIN 0.25 MG/ML (LANOXIN) 2 ML AMP IV ONE (08:15)
--- NOTE | 2019-08-23 08:23 | Cardiology Progress Note ---
Subjective Date Seen by Provider: Aug 23, 2019 Time Seen by Provider: 08:20 Subjective/Events-last exam Patient is laying down in bed, feeling better. Had an ICD placed yesterday no complications Review of Systems General: No Chills, No Night Sweats, No Fatigue, No Malaise, No Appetite, No Other HEENT: No Head Aches, No Visual Changes, No Eye Pain, No Ear Pain, No Dysphasia, No Sinus Congestion, No Post Nasal Drip, No Sore Throat, No Other Pulmonary: No Dyspnea, No Cough, No Pleuritic Chest Pain, No Other Cardiovascular: No: Chest Pain, Palpitations, Orthopnea, Paroxysmal Noc. Dyspnea, Edema, Lt Headedness, Other Objective-Cardiology Exam Last Set of Vital Signs Vital Signs 08/22/19 08/22/19 08/22/19 08/23/19 08/23/19 15:07 15:13 21:45 03:36 08:00 Temp 36.4 Pulse 91 Resp 25 B/P (MAP) 148/82 (104) Pulse Ox 93 O2 Delivery Room Air O2 Flow Rate 0.00 FiO2 35 Capillary Refill : Less Than 3 Seconds I&O Intake and Output 08/23/19 00:00 Intake Total 310 ml Output Total 1200 ml Balance -890 ml Intake Oral 300 ml IV Total 10 ml Output Urine Total 1200 ml General: Alert, Oriented X3, Cooperative, No Acute Distress HEENT: Atraumatic, PERRLA Neck: No JVD Lungs: Clear to Auscultation, Normal Air Movement Heart: Normal S1, Normal S2, No Murmurs, Other Abdomen: Normal Bowel Sounds, Soft, No Tenderness, No Hepatosplenomegaly, No Masses Extremities: No Clubbing, No Cyanosis, No Edema, Normal Pulses, No Tenderness/Swelling Skin: No Rashes, No Breakdown, No Significant Lesion Neuro: Normal Gait, Normal Speech, Strength at 5/5 X4 Ext, Normal Tone, Sensation Intact Psych/Mental Status: Mental Status NL, Mood NL Results Lab Laboratory Tests 08/23/19 02:50 A/P-Cardiology Admission Diagnosis Ventricular tachycardia Coronary artery disease Congestive heart failure, chronic compensated left ventricular systolic dysfunction, ischemic cardiomyopathy Hypertension Hyperlipidemia (1) V tach Status: Acute (2) Atrial fibrillation Status: Chronic Qualifiers: Qualified Codes: I48.0 - Paroxysmal atrial fibrillation (3) CAD (coronary artery disease) Status: Chronic Qualifiers: Qualified Codes: I25.708 - Atherosclerosis of coronary artery bypass graft(s), unspecified, with other forms of angina pectoris (4) Essential (primary) hypertension Status: Chronic (5) Hyperlipidemia Status: Chronic Qualifiers: Qualified Codes: E78.2 - Mixed hyperlipidemia Assessment/Plan Coronary artery disease, history of CABG 5 done in 2011, last stress test was done on September 03, 2018 showing diaphragmatic attenuation with no significant ischemia or infarction. Gated images showed ejection fraction 49 percent but patient was in atrial fibrillation on his echo his ejection fraction was 30 percent. Repeat cardiac catheterization was done on August 20, 2019 showing patent vein graft jump graft to the LAD and diagonal, patent vein graft to the first obtuse marginal branch, occluded vein grafts presumably to the right coronary artery and PDA, had a long tubular stenosis in the midright coronary artery up to 60 percent. Medical therapy is recommended Paroxysmal atrial fibrillation/flutter, underwent ROSS, failed cardioversion, started on amiodarone, still tachycardic, adding digoxin. Chronic anticoagulation to reduce the risk of stroke, INR is subtherapeutic maintained on Lovenox, restart loading with Coumadin while on Lovenox Severe mitral regurgitation noted on ROSS with left atrial dilatation, need evaluation for possible mitral valve clip. Ventricular tachycardia, sustained, had dual-chamber ICD implanted by Dr. Gallagher, followed with Dr. Gallagher. Congestive heart failure, LV systolic dysfunction with EF 30 percent. Likely ischemic in nature. Had ICD implanted on August 22, 2019, continue on Coreg and Entresto Patient was seen in [facility] room on August 14, 2019 with chest pain and wide complex tachycardia, failed Adenosine, he was cardioverted with 100 J return to sinus rhythm with narrow complex, consult Dr. Gallagher Dyspnea on exertion, limited exercise ability. Continue on current medication monitor Labile hypertension, blood pressure currently well controlled, continue to monitor. Hyperlipidemia, maintained on Lipitor, had lab work done recently, I'll obtain copy of the results Baseline EKG abnormality was sinus rhythm, left axis deviation. Left anterior fascicular block. Poor R-wave progression in the anterior leads. Nonobstructive carotid artery stenosis per carotid duplex done June 2018, continue to monitor. Unsteady gait and generalized weakness for which he uses a wheelchair. Clinical Quality Measures DVT/VTE Risk/Contraindication: Risk Factor Score Per Nursin RFS Level Per Nursing on Admit: 4+=Very High BARBARA GUILLEN MD Aug 23, 2019 08:23
[2019-08-23] MEDS: SACUBITRIL/VALSARTAN 24/26 MG (ENTRESTO) TABLET PO SCH ×2 (08:30→20:37)
[2019-08-23] MEDS: BRIMONIDINE 0.2% (ALPHAGAN) OPHTH SOLN 5 ML BTL OU SCH ×2 (08:30→20:38)
[2019-08-23] MEDS: AMIODARONE 200 MG (CORDARONE) TAB PO SCH ×2 (08:30→20:37)
[2019-08-23] MEDS: CARVEDILOL 12.5 MG (COREG) TABLET PO SCH ×2 (08:31→20:37)
[2019-08-23] MEDS: ASPIRIN E.C. 81 MG (ECOTRIN) TAB PO SCH (08:31)
--- NOTE | 2019-08-23 08:40 | NUR ---
CM/SS patient is from [facility], called and left message for Anne with call back information.
--- NOTE | 2019-08-23 11:28 | Progress Note - Hospitalist ---
Subjective HPI/CC On Admission Date Seen by Provider: Aug 23, 2019 Time Seen by Provider: 08:30 patient is 69-year-old male with a past medical history of coronary artery disease status post CABG 5, ischemic cardiomyopathy, paroxysmal atrial fibrillation, and hypertension who presented to Dr. Membreno's office as a follow- up for nonsustained ventricular tachycardia. Patient reports he was seen at [facility] ER because his heart was racing and was found to be in a wide complex tachycardia. Per notes he was given adenosine without resolution and subsequently was cardioverted. This returned him to sinus rhythm and he was advised to follow-up with Dr. Membreno is an outpatient. Dr. Membreno saw the patient yesterday and direct admitted him for further cardiac evaluation. I am consulted for medical management. The only other medical problem the patient to report to me is that he recently had a urinary tract infection. He denies any chest pain, shortness of breath, palpitations,nausea, vomiting, or loss of appetite. Subjective/Events-last exam Pt reports feeling well. Only complaint is that he is board. Objective Exam Vital Signs Vital Signs Date Time Temp Pulse Resp B/P (MAP) Pulse Ox O2 Delivery O2 Flow Rate FiO2 08/23/19 08:00 93 Room Air 08/23/19 08:00 91 148/82 (104) 08/23/19 03:36 36.4 08/22/19 21:45 0.00 08/22/19 15:13 25 08/22/19 15:07 35 Capillary Refill : Less Than 3 Seconds General Appearance: No Apparent Distress, Chronically ill, Obese Respiratory: Lungs Clear, No Respiratory Distress Cardiovascular: No Murmur, Irregularly Irregular Gastrointestinal: Normal Bowel Sounds, Soft Results/Procedures Lab Laboratory Tests 08/23/19 02:50 Patient resulted labs reviewed. Imaging: Reviewed Imaging Report Assessment/Plan Assessment and Plan Assess & Plan/Chief Complaint Sustained Ventricular Tachycardia CAD s/p CABG Ischemic Cardiomyopathy with EF 35%- echo done 08/20/19 paroxysmal Atrial Fibrillation Monitor on telemetry Cath yesterday- no intervention, medical management Dr Gallagher consulted for EP- rs/p/ ICD placement yesterday Resume Warfarin Bridging on Lovenox HTN Well controlled on current regimen, trend HLD Continue statin [facility] [place] [place] [facility] [place] [facility] medical point of view when [place] with cardiologyw Diagnosis/Problems Diagnosis/Problems (1) Atrial fibrillation Status: Chronic Qualifiers: Atrial fibrillation type: paroxysmal Qualified Codes: I48.0 - Paroxysmal atrial fibrillation (2) CAD (coronary artery disease) Status: Chronic Qualifiers: Coronary Disease-Associated Artery/Lesion type: bypass graft [place] vs. transplanted heart: [place] heart Associated angina: with other forms of angina Qualified Codes: I25.708 - Atherosclerosis of coronary artery bypass graft(s), unspecified, with other forms of angina pectoris (3) Essential (primary) hypertension Status: Chronic (4) Hyperlipidemia Status: Chronic Qualifiers: Hyperlipidemia type: mixed hyperlipidemia Qualified Codes: E78.2 - Mixed hyperlipidemia (5) V tach Status: Acute Clinical Quality Measures DVT/VTE Risk/Contraindication: Risk Factor Score Per Nursin RFS Level Per Nursing on Admit: 4+=Very High Copy Copies To 1: JON LEVINE KATELYN M MD Aug 23, 2019 11:28
--- NOTE | 2019-08-23 13:08 | Cardiology Progress Note ---
Cardiology SOAP Progress Note Subjective: No cardiac complaints. Objective: I&O/Vital Signs 08/23/19 08/23/19 08/23/19 08/23/19 03:36 04:00 07:00 08:00 Temp 36.4 Pulse 116 91 B/P (MAP) 135/86 (102) 148/82 (104) Pulse Ox 89 93 O2 Delivery Room Air Room Air 08/23/19 08/23/19 08/23/19 08:00 12:00 12:45 Temp 36.4 Pulse 70 76 Resp 21 Pulse Ox 93 93 O2 Delivery Room Air Room Air 08/23/19 00:00 Intake Total 310 ml Output Total 750 ml Balance -440 ml Weight (Pounds): 210 Weight (Ounces): 0.3 Weight (Calculated Kilograms): 96.826277 Side: left Device Insertion Site: without hematoma, no signs of inflammation Drainage: No Constitutional: appears stated age, AAO x 3, well-developed, well-nourished Respiratory: chest is bilaterally symmetric, lungs clear to auscultation Cardiovascular: irregularly irregular, S1 and S2 Gastrointestional: soft, round, audible bowel sounds Extremities: normal range of motion, non-tender, normal inspection, no lower extremity edema bilateral Neurologic/Psychiatric: no motor/sensory deficits, alert, normal mood/affect, oriented x 3, power is 5/5 both on sides Skin: normal color Results/Procedures: Labs Laboratory Tests 08/23/19 02:50: White Blood Count 8.1, Red Blood Count 3.85L, Hemoglobin 11.3L, Hematocrit 36L, Mean Corpuscular Volume 92, Mean Corpuscular Hemoglobin 29, Mean Corpuscular Hemoglobin Concent 32, Red Cell Distribution Width 17.1H, Platelet Count 215, Mean Platelet Volume 10.3, Prothrombin Time 17.8H, INR Comment 1.4, Sodium Level 142, Potassium Level 3.8, Chloride Level 106, Carbon Dioxide Level 24, Anion Gap 12, Blood Urea Nitrogen 19H, Creatinine 0.93, Estimat Glomerular Filtration Rate > 60, BUN/Creatinine Ratio 20, Glucose Level 110H, Calcium Level 8.1L, Corrected Calcium 8.6, Total Bilirubin 1.3H, Aspartate Amino Transf (AST/SGOT) 15, Alanine Aminotransferase (ALT/SGPT) 21, Alkaline Phosphatase 112, Total Protein 6.7, Albumin 3.4 A/P: Assessment/Dx: Sustained VT, Atrial fibrillation with controlled ventricular rate Chest pain, History of CAD/CABG, Ischemic cardiomyopathy Plan: This is a 69-year-old gentleman with known history of CAD, CABG, ischemic cardiomyopathy who presented with unstable sustained ventricular tachycardia with chest pain and diaphoresis requiring defibrillation which converted to sinus rhythm. Continue high-dose beta joselyn. Coronary evaluation done 08/20/[address] Moulton did not show any evidence of acute occlusion/stenosis. Dual-chamber ICD done for secondary prevention on 08/22/2019. Normal device interrogation this morning. Atrial fibrillation: Transesophageal echocardiogram assisted cardioversion was unsuccessful yesterday. Start amiodarone. Restart Coumadin. Bridging with Lovenox. EKG dated 08/14/2019 at 9:23 a.m. shows sinus rhythm with narrow QRS. QRS duration is 80 ms. WEIGHT ENGINEER therapy is not recommended. Ischemic cardiomyopathy, defer to Dr. Moulton. Preliminary echocardiogram shows an EF of 30-35 percent, global hypokinesis. CAD/CABG, defer to Dr. Moulton. Coronary angiography 08/20/2019. Severe mitral regurgitation on transesophageal echocardiogram. Defer to Dr. Moulton. Thank you for your consultation. Please call me if you have any questions. Kaushik Gallagher MD, FACP, FACC, FSCAI, FHRS, CCDS Interventional Cardiology Cardiac Electrophysiology Vascular Medicine and Endovascular Interventions Tarah GALLAGHER MD Aug 23, 2019 13:08
[2019-08-23] MEDS: DIGOXIN 0.125 MG (LANOXIN) TAB PO SCH (14:08)
--- NOTE | 2019-08-23 15:05 | NUR ---
CM/SS spoke with Anne at [facility] and faxed over what information could, except for the finalized discharge orders. Let the facility know it is likely that he could discharge over the weekend.
[2019-08-23 16:00] VITALS: BP 118/71
[2019-08-23] MEDS ORDERED: warFARin 5 MG (COUMADIN) TAB PO SCH (18:00)
[2019-08-23 20:00] VITALS: BP 109/61
[2019-08-23] MEDS: LATANOPROST 0.005% (XALATAN) OPHTH SOLN 2.5 ML OU SCH (20:38)
[2019-08-24] VITALS: BP 114/69
[2019-08-24] MEDS: NS IV 1000 ML 1,000 ML IV SCH ×2 (00:06→10:17)
[2019-08-24 03:27] LABS: INR 1.3 (0.8-1.4); PROTHROMBIN TIME PATIENT 16.4 SEC (12.2-14.7)
[2019-08-24 04:00] VITALS: BP 112/78
[2019-08-24] MEDS: ENOXAPARIN 100 MG/1 ML (LOVENOX) SYR SC SCH (06:48)
[2019-08-24] MEDS: FUROSEMIDE 40 MG (LASIX) TAB PO SCH (06:48)
[2019-08-24] MEDS: KCL 20 MEQ TAB (K-DUR) PO SCH (06:48)
--- NOTE | 2019-08-24 08:07 | Progress Note - Hospitalist ---
Subjective HPI/CC On Admission Date Seen by Provider: Aug 24, 2019 Time Seen by Provider: 08:03 patient is 69-year-old male with a past medical history of coronary artery disease status post CABG 5, ischemic cardiomyopathy, paroxysmal atrial fibrillation, and hypertension who presented to Dr. Membreno's office as a follow- up for nonsustained ventricular tachycardia. Patient reports he was seen at [facility] ER because his heart was racing and was found to be in a wide complex tachycardia. Per notes he was given adenosine without resolution and subsequently was cardioverted. This returned him to sinus rhythm and he was advised to follow-up with Dr. Membreno is an outpatient. Dr. Membreno saw the patient yesterday and direct admitted him for further cardiac evaluation. I am consulted for medical management. The only other medical problem the patient to report to me is that he recently had a urinary tract infection. He denies any chest pain, shortness of breath, palpitations,nausea, vomiting, or loss of appetite. Subjective/Events-last exam Pt reports doing well. Sitting up in chair. No complaints. No soreness. Objective Exam Vital Signs Vital Signs Date Time Temp Pulse Resp B/P (MAP) Pulse Ox O2 Delivery O2 Flow Rate FiO2 08/24/19 04:00 69 112/78 (89) 91 Room Air 08/24/19 04:00 36.6 08/23/19 12:00 21 08/22/19 21:45 0.00 08/22/19 15:07 35 Capillary Refill : Less Than 3 Seconds General Appearance: No Apparent Distress, Chronically ill, Obese Respiratory: Lungs Clear, No Respiratory Distress Cardiovascular: Regular Rate, Rhythm, No Murmur Gastrointestinal: Normal Bowel Sounds, Soft Neurologic/Psychiatric: Alert, Oriented x3, Normal Mood/Affect Results/Procedures Lab Patient resulted labs reviewed. Imaging: Reviewed Imaging Report Assessment/Plan Assessment and Plan Assess & Plan/Chief Complaint Sustained Ventricular Tachycardia CAD s/p CABG Ischemic Cardiomyopathy with EF 35%- echo done 08/20/19 paroxysmal Atrial Fibrillation Monitor on telemetry Cath done this admission- no intervention, medical management Dr Gallagher consulted for EP- s/p ICD placement 08/22 Resume Warfarin- INR 1.3 today Bridging on Lovenox HTN Well controlled on current regimen, trend HLD Continue statin [facility] [place] [place] [facility] [place] [facility] [place] point [place] when [place] with cardiology, will round prn Diagnosis/Problems Diagnosis/Problems (1) Atrial fibrillation Status: Chronic Qualifiers: Atrial fibrillation type: paroxysmal Qualified Codes: I48.0 - Paroxysmal atrial fibrillation (2) CAD (coronary artery disease) Status: Chronic Qualifiers: Coronary Disease-Associated Artery/Lesion type: bypass graft [place] vs. transplanted heart: [place] heart Associated angina: with other forms of angina Qualified Codes: I25.708 - Atherosclerosis of coronary artery bypass graft(s), unspecified, with other forms of angina pectoris (3) Essential (primary) hypertension Status: Chronic (4) Hyperlipidemia Status: Chronic Qualifiers: Hyperlipidemia type: mixed hyperlipidemia Qualified Codes: E78.2 - Mixed hyperlipidemia (5) V tach Status: Acute Clinical Quality Measures DVT/VTE Risk/Contraindication: Risk Factor Score Per Nursin RFS Level Per Nursing on Admit: 4+=Very High MYRTLE MANSFIELD MD Aug 24, 2019 08:07
[2019-08-24 08:51] VITALS: BP 110/73
[2019-08-24] MEDS: CARVEDILOL 12.5 MG (COREG) TABLET PO SCH (08:53)
[2019-08-24] MEDS: AMIODARONE 200 MG (CORDARONE) TAB PO SCH (08:54)
[2019-08-24] MEDS: ASPIRIN E.C. 81 MG (ECOTRIN) TAB PO SCH (08:54)
[2019-08-24] MEDS: SACUBITRIL/VALSARTAN 24/26 MG (ENTRESTO) TABLET PO SCH (08:54)
[2019-08-24] MEDS: DIGOXIN 0.125 MG (LANOXIN) TAB PO SCH (08:54)
[2019-08-24] MEDS: BRIMONIDINE 0.2% (ALPHAGAN) OPHTH SOLN 5 ML BTL OU SCH (08:54)
[2019-08-24 09:00] VITALS: BP 110/73
--- NOTE | 2019-08-24 10:43 | Pulmonary Progress Note ---
Sepsis Event Evaluation Height, Weight, BMI Height: '67.00" Weight: 210lbs. 0.3oz. 96.860191yb; 33.72 BMI Method:Stated Exam Exam Vital Signs Date Time Temp Pulse Resp B/P (MAP) Pulse Ox O2 Delivery O2 Flow Rate FiO2 08/24/19 08:51 36.5 70 20 110/73 (85) 94 Room Air 08/24/19 07:00 74 08/24/19 04:00 69 112/78 (89) 91 Room Air 08/24/19 04:00 36.6 08/24/19 01:00 72 08/24/19 00:00 36.3 08/24/19 00:00 75 114/69 (84) 92 Room Air 08/23/19 21:00 93 Room Air 08/23/19 20:00 36.2 08/23/19 20:00 77 109/61 (77) 91 Room Air 08/23/19 19:00 94 08/23/19 16:00 69 118/71 (87) 96 Room Air 08/23/19 16:00 36.7 08/23/19 12:45 76 08/23/19 12:00 36.4 70 21 93 Room Air I & O 08/24/19 07:00 Intake Total 2150 ml Output Total 1500 ml Balance 650 ml Height & Weight Height: '67.00" Weight: 210lbs. 0.3oz. 96.028158zl; 33.72 BMI Method:Stated General Appearance: No Apparent Distress, Chronically ill, Obese HEENT: Moist Mucous Membranes Neck: Normal Inspection, Supple Respiratory: Lungs Clear, No Respiratory Distress Cardiovascular: Regular Rate, Rhythm, No Murmur Capillary Refill: Less Than 3 Seconds Peripheral Pulses: 2+ Radial Pulses (R), 2+ Radial Pulses (L) Extremity: Non Tender, No Calf Tenderness, Pedal Edema Neurologic/Psychiatric: Alert, Oriented x3, Normal Mood/Affect Skin: Normal Color, Warm/Dry Results Lab Laboratory Tests 08/23/19 02:50 Assessment/Plan Assessment/Plan SOB - Duoneb Q4h -CXR is negative - 3L O2 Probable ZURDO with nocturnal hypoxia -Pt will need out pt PSG. -medicare usually requires PSG prior to nocturnal oxygen setup unless he desats to 88% with exertion. -PSG has to be done as out pt. -I will see him in my office next week for complete workup. V-Tach on Monday now s/p AICD CAD and history of CABG x 5 done in 2011 Hx paroxysmal A-Fib/flutter CHF with LV systolic function - cardiology following hyperlipidemia glaucoma JAMSHID MILLIGAN DO Aug 24, 2019 10:43
[2019-08-24] MEDS ORDERED: ceFAZolin INJECTION 1,000 MG in WATER (STERILE) FOR INJECTION 10 ML IV ONE (11:45)
[2019-08-24 12:00] VITALS: BP 115/69
[2019-08-24] MEDS ORDERED: ENOX100D4 SC (12:38)
[2019-08-24] MEDS ORDERED: WARF5TAB PO (12:38)
[2019-08-24] MEDS ORDERED: DIGO125T18 PO (12:38)
[2019-08-24] MEDS ORDERED: CEPH250C PO (12:38)
[2019-08-24] MEDS ORDERED: AMIO200T4 PO (12:38)
--- NOTE | 2019-08-24 13:31 | Cardiology Discharge Summary ---
Diagnosis/Chief Complaint Date of Admission Aug 19, 2019 at 13:30 Date of Discharge 08/24/2019 Admission Diagnosis 1. Sustained monomorphic VT 2. Atrial fibrillation 3. Ischemic cardiomyopathy, 4. CAD/CABG Final/Discharge Diagnosis 1. Sustained monomorphic VT, status post dual-chamber ICD placed 2. Atrial fibrillation 3. Ischemic cardiomyopathy, 4. CAD/CABG Chief Complaint/HPI Chief Complaint/HPI This is a 69-year-old gentleman who is a patient of Dr. Moulton. I have been consulted for cardiac electrophysiology. He presented to [facility] on 08/14/2019 with chest pain, diaphoresis, palpitation and was found to be in wide complex tachycardia. He was cardioverted to sinus rhythm. The patient has history of CABG in [address] [facility] and known cardiomyopathy with an EF of 30 percent. He is on Entresto and carvedilol. He does not smoke. He does not have significant family history. He denies diabetes. Discharge Summary Procedures Coronary angiography did not reveal any severe stenosis that needed to be intervened on. Severe [place] CAD. Transesophageal echocardiogram showed severe mitral regurgitation. Unsuccessful cardioversion. Dual-chamber ICD placed for successful DFTs. Discharge Physical Examination Unremarkable. Hospital Course Was the Problem List Reviewed?: Yes No further arrhythmias. Patient was in atrial fibrillation. Coronary angiography did not reveal any lesion that needed to be stented. PA was ruled out. Transesophageal echocardiogram showed severe mitral regurgitation. Cardioversion was unsuccessful. Dual-chamber ICD was implanted. Successful DFTs. Amiodarone was started. Patient was restarted on Coumadin will be discharged on Lovenox to bridge. Discussion & Recommendations Discussion Discharge took over 30 minutes to complete. Discussed at length with the patient. Patient was started on amiodarone. NIPS in the near future with anesthesia. Defer to Dr. Moulton about severe mitral regurgitation. Continue amiodarone for atrial fibrillation as well. Follow up appt.: Dr. Moulton for cardiology. Dr. Gallagher for electrophysiology. Dicharge Diet: Cardiac Diet Activity as Tolerated: Yes Home Medications Reviewed patient Home Medication Reconciliation performed by pharmacy medication reconciliations special equipment technician and/or nursing. Patients Allergies have been reviewed. Discharge Home Medications: Reviewed and agree with Discharge Medication list on patient's Discharge Instruction sheet Condition at discharge Stable. Instructions to patient/family Discussed with the patient. Clinical Quality Measures DVT/VTE Risk/Contraindication: Risk Factor Score Per Nursin RFS Level Per Nursing on Admit: 4+=Very High Tarah GALLAGHER MD Aug 24, 2019 13:31
--- NOTE | 2019-08-24 13:38 | NUR ---
LM with Etelvina, RN at [facility]. Advised of new medication. She tells this RN that Lovenox at dose being given is able to be administered today at facility. Went over all f/u appointment needs and highlighted these on the discharge packet. She had no further questions. Awaiting transport from [facility] for patient to go back to facility.
--- NOTE | 2019-08-24 13:50 | NUR ---
Pt d/c via w/c to [facility] w/c van. All personal belongings sent with patient. All discharge paperwork with f/u instructions and medication list given to [facility] staff.
[2019-08-24 14:00] VITALS: BP 115/63
[2019-08-24] MEDS ORDERED: CEPHALEXIN 250 MG (KEFLEX) CAP PO SCH (21:00)
== END 2019-08-24 13:50 | DRG 225 ==
LOC: ICU 13:30
PROVIDERS: ADMIT Internal Medicine Cardiovascular Disease; ATTEND Internal Medicine Cardiovascular Disease
PROC: 4A023N7 Measurement of Cardiac Sampling and Pressure, Left Heart, Percutaneous Approach (ICD-10-PCS; 2019-08-20)
PROC: B2111ZZ Fluoroscopy of Multiple Coronary Arteries using Low Osmolar Contrast (ICD-10-PCS; 2019-08-20)
PROC: B3101ZZ Fluoroscopy of Thoracic Aorta using Low Osmolar Contrast (ICD-10-PCS; 2019-08-20)
PROC: B2181ZZ Fluoroscopy of Left Internal Mammary Bypass Graft using Low Osmolar Contrast (ICD-10-PCS; 2019-08-20)
PROC: B2131ZZ Fluoroscopy of Multiple Coronary Artery Bypass Grafts using Low Osmolar Contrast (ICD-10-PCS; 2019-08-20)
PROC: 02H73KZ Insertion of Defibrillator Lead into Left Atrium, Percutaneous Approach (ICD-10-PCS; principal; 2019-08-22)
PROC: 0JH608Z Insertion of Defibrillator Generator into Chest Subcutaneous Tissue and Fascia, Open Approach (ICD-10-PCS; 2019-08-22)
PROC: 02HK3KZ Insertion of Defibrillator Lead into Right Ventricle, Percutaneous Approach (ICD-10-PCS; 2019-08-22)
PROC: 5A2204Z Restoration of Cardiac Rhythm, Single (ICD-10-PCS; 2019-08-22)
DX: I47.2 Ventricular tachycardia (principal); I25.5 Ischemic cardiomyopathy; I34.0 Nonrheumatic mitral (valve) insufficiency; G47.33 Obstructive sleep apnea (adult) (pediatric); I25.10 Atherosclerotic heart disease of native coronary artery without angina pectoris; I11.0 Hypertensive heart disease with heart failure; I50.22 Chronic systolic (congestive) heart failure; E78.5 Hyperlipidemia, unspecified; I44.4 Left anterior fascicular block; R26.81 Unsteadiness on feet; R53.1 Weakness; I25.810 Atherosclerosis of coronary artery bypass graft(s) without angina pectoris; I70.0 Atherosclerosis of aorta; I25.2 Old myocardial infarction; Z95.1 Presence of aortocoronary bypass graft
CPT/HCPCS: 33249; 36415; 71045; 71046; 80048; 80053; 83735; 84443; 84484; 85027; 85610; 85730; 92960; 93005; 93306; 93312; 93320; 93325; 93459; 93567; 93641; 94762

== ENCOUNTER 2019-09-18 19:37 | Outpatient (CLI) | payer OTHER, MEDICAID ==
[~2019-09-18 19:37] MED LIST changes: +AMIO200T4 PO; +ASPI-983 PO; +ATOR40TA70 PO; +BRIM5DRO2 OU; +CALC200T33 PO; +CEPH250C PO; +CRV25T PO; +DIGO125T18 PO; +ENOX100D4 SC; +FURO-124 PO; +LANO454C3 TP; +LATA2.5D19 OU; +MINE15DR4 OU; +POTA-51 PO; +SACU1TAB PO; +WARF-48 PO; +WARF2.5T82 PO; +WARF5TAB PO
== END 2019-09-19 07:00 | disposition home or self-care (01) ==
LOC: SLEEP 19:37
PROVIDERS: ATTEND Nurse Practitioner Family
DX: G47.10 Hypersomnia, unspecified (principal); G47.50 Parasomnia, unspecified; I48.92 Unspecified atrial flutter; J30.9 Allergic rhinitis, unspecified
CPT/HCPCS: 95810

== ENCOUNTER → 2021-04-01 | Outpatient (CLI) | payer MEDICARE, MEDICAID ==
[~2021-04-01] MED LIST changes: -AMIO200T4 PO; +AMIO200T6 PO; +ASPI-1238 PO; -ASPI-983 PO; -SACU1TAB PO; +SACU1TAB2 PO; -WARF2.5T82 PO; -WARF5TAB PO; +WARF5TAB2 PO; +WRF2.5T PO
--- NOTE | 2021-04-01 12:10 | Diagnostic Imaging Report ---
INDICATION: HYPERTENSIVE DISORDER COMPARISON: 08/22/2019. FINDINGS: Single frontal view of the chest demonstrates mild cardiomegaly. Pulmonary vasculature is within normal limits. Left-sided AICD, sternotomy wires, and calcified aortic atherosclerosis are noted. The lungs are well aerated and clear. No large pleural effusion or pneumothorax is seen. The visualized osseous structures show no acute abnormalities. IMPRESSION: 1. Mild cardiomegaly, but no evidence of failure or focal infiltrate. Dictated by: Dictated on workstation # [id number]
== END ==
LOC: CARD 12:00
PROVIDERS: ATTEND Physician Assistant
DX: I08.3 Combined rheumatic disorders of mitral, aortic and tricuspid valves (principal); I11.9 Hypertensive heart disease without heart failure; Z95.810 Presence of automatic (implantable) cardiac defibrillator; Z98.890 Other specified postprocedural states
CPT/HCPCS: 71045; 93306

== ENCOUNTER 2022-09-23 11:59 | Outpatient (CLI) | payer MEDICARE, MEDICAID ==
[~2022-09-23] VITALS: Ht 170.2 cm; Wt 87.5 kg
[~2022-09-23 11:59] MED LIST changes: -AMIO200T6 PO; +AMIO200T65 PO
[2022-09-28] MEDS ORDERED: APIX5TAB PO (08:55)
[2022-09-28] MEDS ORDERED: CETI10CA PO (08:55)
[2022-09-28] MEDS ORDERED: METO2.5T PO (08:55)
[2022-09-28] MEDS ORDERED: CITA10TA9 PO (08:55)
[2022-09-28] MEDS ORDERED: EMPA10TA PO (08:55)
[2022-09-28] MEDS ORDERED: SACU1TAB2 PO (08:55)
[2022-09-28] MEDS ORDERED: CYAN100T37 PO (08:55)
[2022-09-28] MEDS ORDERED: CALC500T7 PO (08:55)
[2022-09-28] MEDS ORDERED: PANT40TA2 PO (08:55)
== END 2022-09-28 18:26 | disposition home or self-care (01) ==
LOC: PREOP 11:59
PROVIDERS: ATTEND Specialist
DX: Z01.818 Encounter for other preprocedural examination (principal)

== ENCOUNTER 2022-09-30 09:56 | Day surgery (SDC) | payer MEDICARE, MEDICAID ==
[~2022-09-30] VITALS: Ht 170.2 cm; Wt 87.5 kg
[~2022-09-30 09:56] MED LIST changes: +APIX5TAB PO; +CALC500T7 PO; +CETI10CA PO; +CITA10TA9 PO; +CYAN100T37 PO; +EMPA10TA PO; +METO2.5T PO; +PANT40TA2 PO
[2022-09-30] MEDS: TETRACAINE 0.5% OPHTH SOLN 4 ML BTL (SINGLE DOSE ONLY) OU PRN ×4 (10:22→10:47)
[2022-09-30] MEDS ORDERED: TIMOLOL MALEATE 0.5% 5 ML (TIMOPTIC) BTL OU PRN (10:30)
[2022-09-30] MEDS ORDERED: MOXIFLOXACIN OPHTH SOLN 5 MG/ML 0.3 ML SYRINGE OP ONE (10:30)
[2022-09-30] MEDS ORDERED: POVIDONE (BETADINE) OPHTH SOLN 5% 30 ML OP ONE (10:30)
[2022-09-30] MEDS: TROPICAMIDE 1% OPH SOLN (MYDRIACYL) 15 ML BTL OP SCH ×3 (10:36→10:47)
[2022-09-30] MEDS: PHENYLEPHRINE 10% OPHTH (NEO-SYN) 5 ML BTL OU SCH ×3 (10:36→10:47)
[2022-09-30] MEDS ORDERED: MIDAZOLAM 2 MG/2 ML (VERSED) VIAL ONE (10:38)
[2022-09-30 10:39] VITALS: BP 102/63
--- NOTE | 2022-09-30 11:13 | Ophthalmologist Pre-Op Note ---
Pre-Operative Progress Note H&P Reviewed The H&P was reviewed, patient examined and no changes noted. Date H&P Reviewed: Sep 30, 2022 Time H&P Reviewed: 11:13 Pre-Op Dx Cataract, Right Eye PEDRO MA MD Sep 30, 2022 11:13
--- NOTE | 2022-09-30 11:40 | Ophthalmology Operative Report ---
Cataract removal/placement IOL PREOPERATIVE DIAGNOSIS: 1. Mature Cataract Right Eye 2. Stain the anterior capsule with Vision Blue. POSTOPERATIVE DIAGNOSIS: 1. Mature Cataract Right Eye 2. Stain the anterior capsule with Vision Blue. PROCEDURE: 1. Cataract removal and placement of posterior chamber implant, right eye. 2. Stain the anterior capsule with Vision Blue. SURGEON: Polo Ma ANESTHESIA: Topical with sedation COMPLICATIONS: None ESTIMATED BLOOD LOSS: Minimal DESCRIPTION OF PROCEDURE: After proper informed consent was obtained, the patient was taken to the Operating Room and the right eye was anesthetized with tetracaine. The right eye was then prepped and draped in the usual manner. A wire lid speculum was placed. A paracentesis was made at the left hand position. Preservative free lidocaine was injected into anterior chamber followed by viscoelastic. A clear corneal incision was made in the temporal position. A capsulorrhexis was performed and the central nuclear and cortical material were removed. Vision blue was used to visualize capsule. The posterior capsule was polished and Jose 20.0 [id number] IOL was placed into the capsular bag. The residual viscoel astic was aspirated and balanced saline solution was injected into the anterior chamber. Moxifloxacin was injected into the anterior chamber. The wound was checked and found to be water tight. The patient tolerated the procedure well without complications. POLO MA MD Sep 30, 2022 11:40
[2022-09-30 11:41] VITALS: BP 110/61
--- NOTE | 2022-09-30 12:39 | Anesthesia-General Post-Op ---
MAC Patient Condition Mental Status/LOC: Same as Preop Cardiovascular: Satisfactory Nausea/Vomiting: Absent Respiratory: Satisfactory Pain: Controlled Complications: Absent Post Op Complications Complications None Follow Up Care/Instructions Patient Instructions None needed. Anesthesiology Discharge Order Discharge Order Patient is doing well, no complaints, stable vital signs, no apparent adverse anesthesia problems. No complications reported per nursing. FABY ALMENDAREZ CRNA Sep 30, 2022 12:39
[2022-09-30] MEDS ORDERED: acetaZOLAMIDE ER 500 MG CAP (DIAMOX SEQUELS) PO ONE (13:00)
== END 2022-09-30 11:42 | disposition home or self-care (01) ==
LOC: SDC 09:56
PROVIDERS: ATTEND Specialist
DX: H25.89 Other age-related cataract (principal)
CPT/HCPCS: 66984; V2632

== ENCOUNTER 2022-10-10 05:34 | Outpatient (CLI) | payer MEDICARE, MEDICAID ==
[~2022-10-10] VITALS: Ht 170.2 cm; Wt 87.0 kg
== END 2022-10-12 10:38 | disposition home or self-care (01) ==
LOC: PREOP 05:34
PROVIDERS: ATTEND Specialist
DX: Z01.818 Encounter for other preprocedural examination (principal)

== ENCOUNTER 2022-10-14 08:28 | Day surgery (SDC) | payer MEDICARE, MEDICAID ==
[~2022-10-14] VITALS: Ht 170.2 cm; Wt 87.0 kg
[2022-10-14 08:20] VITALS: BP 96/65
[2022-10-14] MEDS ORDERED: TIMOLOL MALEATE 0.5% 5 ML (TIMOPTIC) BTL OU PRN (08:30)
[2022-10-14] MEDS ORDERED: MOXIFLOXACIN OPHTH SOLN 5 MG/ML 0.3 ML SYRINGE OP ONE (08:30)
[2022-10-14] MEDS ORDERED: POVIDONE (BETADINE) OPHTH SOLN 5% 30 ML OP ONE (08:30)
[2022-10-14] MEDS: TETRACAINE 0.5% OPHTH SOLN 4 ML BTL (SINGLE DOSE ONLY) OU PRN ×4 (08:38→08:45)
[2022-10-14] MEDS: PHENYLEPHRINE 10% OPHTH (NEO-SYN) 5 ML BTL OU SCH ×3 (08:44→08:54)
[2022-10-14] MEDS: TROPICAMIDE 1% OPH SOLN (MYDRIACYL) 15 ML BTL OP SCH ×3 (08:44→08:54)
--- NOTE | 2022-10-14 09:01 | Ophthalmologist Pre-Op Note ---
Pre-Operative Progress Note H&P Reviewed The H&P was reviewed, patient examined and no changes noted. Date H&P Reviewed: Oct 14, 2022 Time H&P Reviewed: 09:00 Pre-Op Dx Cataract, Left Eye PEDRO MA MD Oct 14, 2022 09:01
[2022-10-14] MEDS ORDERED: MIDAZOLAM 2 MG/2 ML (VERSED) VIAL ONE (09:05)
--- NOTE | 2022-10-14 09:29 | Ophthalmology Operative Report ---
Cataract removal/placement IOL PREOPERATIVE DIAGNOSIS: Cataract Left Eye POSTOPERATIVE DIAGNOSIS: Cataract Left Eye PROCEDURE: Cataract removal and placement of posterior chamber implant, left eye SURGEON: Polo Ma ANESTHESIA: Topical with sedation COMPLICATIONS: None ESTIMATED BLOOD LOSS: Minimal DESCRIPTION OF PROCEDURE: After proper informed consent was obtained, the patient, a 72 male, was taken to the Operating Room and the left eye was anesthetized with tetracaine. The left eye was then prepped and draped in the usual manner. A wire lid speculum was placed. A paracentesis was made at the left hand position. Preservative free lidocaine was injected into the anterior chamber followed by viscoelastic. A clear corneal incision was made in the temporal position. A capsulorrhexis was preformed and the central nuclear and cortical material were removed. The posterior capsule was polished and an Jose 20.5 AU00T0 was placed into the capsular bag. The residual viscoelastic was aspirated and balanced saline solution was injected into the anterior chamber. Moxifloxacin was injected into the anterior chamber. The wound was checked and found to be water tight. The patient tolerated the procedure well without complications. POLO MA MD Oct 14, 2022 09:29
[2022-10-14 09:39] VITALS: BP 100/56
[2022-10-14] MEDS ORDERED: acetaZOLAMIDE ER 500 MG CAP (DIAMOX SEQUELS) PO ONE (10:30)
--- NOTE | 2022-10-14 14:06 | Anesthesia-General Post-Op ---
MAC Patient Condition Mental Status/LOC: Same as Preop Cardiovascular: Satisfactory Nausea/Vomiting: Absent Respiratory: Satisfactory Pain: Controlled Complications: Absent Post Op Complications Complications None Follow Up Care/Instructions Patient Instructions None needed. Anesthesiology Discharge Order Discharge Order Patient is doing well, no complaints, stable vital signs, no apparent adverse anesthesia problems. No complications reported per nursing. YASMIN HOBBS CRNA Oct 14, 2022 14:05
== END 2022-10-14 09:43 | disposition home or self-care (01) ==
LOC: SDC 08:28
PROVIDERS: ATTEND Specialist
DX: E11.36 Type 2 diabetes mellitus with diabetic cataract (principal); H25.9 Unspecified age-related cataract; Z95.1 Presence of aortocoronary bypass graft; Z95.0 Presence of cardiac pacemaker; Z79.84 Long term (current) use of oral hypoglycemic drugs
CPT/HCPCS: 66984; V2632

== ENCOUNTER → 2022-10-14 | Outpatient (CLI) | payer MEDICARE, MEDICAID ==
[2022-10-14 16:32] LABS: BILIRUBIN,URINE NEGATIVE (NEGATIVE); CLARITY,URINE CLEAR; COLOR,URINE YELLOW; GLUCOSE, URINE (UA) 1+ (NEGATIVE); KETONES,URINE NEGATIVE (NEGATIVE); LEUKOCYTE ESTERASE ,URINE 3+ (NEGATIVE); NITRITE,URINE NEGATIVE (NEGATIVE); PROTEIN,URINE TRACE (NEGATIVE)
[2022-10-14 16:52] LABS: BACTERIA,URINE MODERATE /HPF; RBC,URINE TNTC /HPF; WBC,URINE TNTC /HPF
== END ==
LOC: LABNPT 16:28
PROVIDERS: ATTEND Family Medicine
DX: Z01.89 Encounter for other specified special examinations (principal)
CPT/HCPCS: 81000; 87088

== ENCOUNTER 2023-02-13 10:52 | Emergency (ER) | payer MEDICARE, MEDICAID ==
[~2023-02-13] VITALS: Ht 170 cm; Wt 87.0 kg
--- NOTE | 2023-02-13 11:09 | ED Fall/Injury ---
General Stated Complaint: FALL | RT RIB/SIDE PAIN Source: patient, EMS Exam Limitations: no limitations History of Present Illness Date Seen by Provider: Feb 13, 2023 Time Seen by Provider: 11:00 Initial Comments 72-year-old male presents to the ED via EMS from [facility] with complaints of right rib and right upper abdominal pain. He fell on 02/09, and again yesterday according to shelter staff. Nursing staff he has had difficulty with severe pain and movement and he has also been hypotensive. EMS reports low-grade temp of 100.4, and hypoxic, they placed him on 2 L of O2 via nasal cannula. Patient complains of severe right-sided rib and right upper abdominal pain, states the pain is intermittent. Denies chest pain, shortness of air, nausea, vomiting. Allergies and Home Medications Allergies Coded Allergies: No Known Drug Allergies (Unverified , 02/13/23) Patient Home Medication List Home Medication List Reviewed: Yes Amiodarone HCl (Amiodarone HCl) 200 Mg Tablet, 400 MG PO BID Prescribed by: CANDI GLOVER on 08/24/19 1238 Apixaban (Eliquis) 5 Mg Tablet, 5 MG PO BID, (Reported) Entered as Reported by: JULIO ESQUIVEL on 09/28/22 0855 Aspirin (Aspirin EC) 81 Mg Tablet.dr, 81 MG PO DAILY, (Reported) Entered as Reported by: TESSIE CASTRO on 08/19/19 1405 Atorvastatin Calcium (Atorvastatin Calcium) 40 Mg Tablet, 40 MG PO DAILY, (Reported) Entered as Reported by: TESSIE CASTRO on 08/19/19 1405 Calcium Carbonate (Tums) 200 Mg Calcium (500 Mg) Tab.chew, 500 MG PO, (Reported) Entered as Reported by: JULIO ESQUIVEL on 09/28/22 0855 Carvedilol (Coreg) 25 Mg Tab, 12.5 MG PO BID, (Reported) Entered as Reported by: TESSIE CASTRO on 08/19/19 1405 Cephalexin (Cephalexin) 500 Mg Tablet, 500 MG PO QID Prescribed by: Shanna Bhatt on 02/13/23 1547 Cetirizine HCl (Zyrtec) 10 Mg Capsule, 10 MG PO, (Reported) Entered as Reported by: JULIO ESQUIVEL on 09/28/22 0855 Citalopram Hydrobromide (Citalopram HBr) 10 Mg Tablet, 10 MG PO DAILY, (Reported) Entered as Reported by: JULIO ESQUIVEL on 09/28/22 08 Cyanocobalamin (Vitamin B-12) Unknown Strength Tablet, 1,000 MCG PO DAILY, (Reported) Entered as Reported by: JULIO ESQUIVEL on 09/28/22 08 Empagliflozin (Jardiance) 10 Mg Tablet, 10 MG PO DAILY, (Reported) Entered as Reported by: JULIO ESQUIVEL on 09/28/22 08 Furosemide (Lasix) 40 Mg Tablet, 20 MG PO BID, (Reported) Entered as Reported by: TESSIE CASTRO on 08/19/19 140 Hydrocodone/Acetaminophen (Hydrocodone-Acetamin 5-325 mg) 5 Mg-325 Mg Tablet, 1 TAB PO Q4H PRN for PAIN-MODERATE (5-7) Prescribed by: Shanna Bhatt on 02/13/23 1546 Metolazone (Metolazone) 2.5 Mg Tablet, 2.5 MG PO UD, (Reported) Entered as Reported by: JULIO ESQUIVEL on 09/28/22 08 Pantoprazole Sodium (Protonix) 40 Mg Tablet.dr, 40 MG PO DAILY, (Reported) Entered as Reported by: JULIO ESQUIVEL on 09/28/22854 Potassium Chloride (Potassium Chloride) 20 Meq Tablet.er, 30 MEQ PO DAILY, (Reported) Entered as Reported by: TESSIE CASTRO on 08/19/19 1405 Sacubitril/Valsartan (Entresto 24 mg-26 mg Tablet) 24 Mg-26 Mg Tablet, 1 TAB PO BID, (Reported) Entered as Reported by: JULIO ESQUIVEL on 09/28/22 08 Review of Systems Review of Systems Constitutional: see HPI Past Vwtohzs-Rdhmmm-Mpcpko Hx Seasonal Allergies Seasonal Allergies: Yes Past Medical History Surgeries: Yes CABG Respiratory: No Cardiac: Yes Atrial Fibrillation, Cardiomyopathy, Coronary Artery Disease, High Cholesterol, Hypertension, Irregular Heartbeat Neurological: No Reproductive Disorders: No Genitourinary: No Gastrointestinal: No Musculoskeletal: No (weakness) Endocrine: No HEENT: No Glaucoma Cancer: No Psychosocial: No Integumentary: Yes (scarring to arms) Blood Disorders: No Adverse Reaction/Blood Tranf: No Family Medical History Heart Disease, Cancer, CAD Under 55 Years Old Physical Exam Vital Signs Vital Signs - First Documented 02/13/23 02/13/23 11:00 12:29 Temp 37.0 Pulse 101 Resp 18 B/P (MAP) 87/69 Pulse Ox 97 O2 Delivery Nasal Cannula O2 Flow Rate 2.00 FiO2 100 Capillary Refill : Height, Weight, BMI Height: '67.00" Weight: 210lbs. 0.3oz. 96.228750ou; 33.72 BMI Method:Stated General Appearance: WD/WN, moderate distress (Intermittently screams out due to pain) Neck: supple, normal inspection Cardiovascular: regular rate, rhythm, no edema, no gallop, no JVD, no murmur Respiratory: lungs clear, normal breath sounds, no respiratory distress, no accessory muscle use, other (Some tenderness over right rib) Gastrointestinal: normal bowel sounds, soft, tenderness (Right upper quadrant) Extremities: normal range of motion Neurologic/Psychiatric: alert, normal mood/affect Skin: normal color, warm/dry Progress/Results/Core Measures Results/Orders Lab Results Laboratory Tests Test 02/13/23 11:00 02/13/23 11:22 02/13/23 11:40 Range/Units White Blood Count 10.3 4.3-11.0 10^3/uL Red Blood Count 3.48 L 4.30-5.52 10^6/uL Hemoglobin 9.9 L 13.3-17.7 g/dL Hematocrit 31 L 40-54 % Mean Corpuscular Volume 89 80-99 fL Mean Corpuscular Hemoglobin 28 25-34 pg Mean Corpuscular Hemoglobin Concent 32 32-36 g/dL Red Cell Distribution Width 18.7 H 10.0-14.5 % Platelet Count 211 130-400 10^3/uL Mean Platelet Volume 9.8 9.0-12.2 fL Immature Granulocyte % (Auto) 1 % Neutrophils (%) (Auto) 92 H 42-75 % Lymphocytes (%) (Auto) 2 L 12-44 % Monocytes (%) (Auto) 3 0-12 % Eosinophils (%) (Auto) 1 0-10 % Basophils (%) (Auto) 0 0-10 % Neutrophils # (Auto) 9.5 H 1.8-7.8 10^3/uL Lymphocytes # (Auto) 0.3 L 1.0-4.0 10^3/uL Monocytes # (Auto) 0.4 0.0-1.0 10^3/uL Eosinophils # (Auto) 0.1 0.0-0.3 10^3/uL Basophils # (Auto) 0.0 0.0-0.1 10^3/uL Immature Granulocyte # (Auto) 0.1 0.0-0.1 10^3/uL Neutrophils % (Manual) 54 % Lymphocytes % (Manual) 1 % Monocytes % (Manual) 2 % Band Neutrophils 43 % Smudge Cells SLIGHT Anisocytosis MODERATE Elliptocytes SLIGHT Prothrombin Time 34.6 H 12.2-14.7 SEC INR Comment 3.4 H 0.8-1.4 Activated Partial Thromboplast Time 59 H 24-35 SEC Sodium Level 140 135-145 MMOL/L Potassium Level 4.3 3.6-5.0 MMOL/L Chloride Level 102 98-107 MMOL/L Carbon Dioxide Level 25 21-32 MMOL/L Anion Gap 13 5-14 MMOL/L Blood Urea Nitrogen 58 H 7-18 MG/DL Creatinine 3.22 H 0.60-1.30 MG/DL Estimat Glomerular Filtration Rate 20 BUN/Creatinine Ratio 18 Glucose Level 98 70-105 MG/DL Lactic Acid Level 1.15 0.50-2.00 MMOL/L Calcium Level 9.1 8.5-10.1 MG/DL Corrected Calcium 9.7 8.5-10.1 MG/DL Total Bilirubin 1.1 H 0.1-1.0 MG/DL Aspartate Amino Transf (AST/SGOT) 125 H 5-34 U/L Alanine Aminotransferase (ALT/SGPT) 93 H 0-55 U/L Alkaline Phosphatase 103 40-136 U/L Total Protein 7.2 6.4-8.2 GM/DL Albumin 3.2 3.2-4.5 GM/DL Amylase Level 83 25-125 U/L Lipase 19 8-78 U/L Influenza Type A (RT-PCR) Not Detected Not Detecte Influenza Type B (RT-PCR) Not Detected Not Detecte SARS-CoV-2 RNA (RT-PCR) Not Detected Not Detecte Urine Color YELLOW Urine Clarity SL CLOUDY Urine pH 6.5 5-9 Urine Specific [place] <=1.005 1.016-1.022 Urine Protein TRACE H NEGATIVE Urine Glucose (UA) TRACE H NEGATIVE Urine Ketones NEGATIVE NEGATIVE Urine Nitrite NEGATIVE NEGATIVE Urine Bilirubin NEGATIVE NEGATIVE Urine Urobilinogen 0.2 < = 1.0 MG/DL Urine Leukocyte Esterase 3+ H NEGATIVE Urine RBC (Auto) 2+ H NEGATIVE Urine RBC 5-10 H /HPF Urine WBC 50-100 H /HPF Urine Squamous Epithelial Cells 0-2 /HPF Urine Crystals NONE /LPF Urine Bacteria LARGE H /HPF Urine Casts PRESENT /LPF Urine Hyaline Casts 0-2 H /LPF Urine Mucus NEGATIVE /LPF Urine Culture Indicated YES Micro Results Microbiology 02/13/23 Blood Culture - Preliminary, Resulted Strep, Beta Hemolytic Group B 02/13/23 Urine Culture - Final, Complete Strep agalactiae Group B Proteus species Mixed Bacterial Keila 02/13/23 Blood Culture - Preliminary, Resulted Strep, Beta Hemolytic Group B My Orders Orders - SHANNA BHATT APRN Cbc With Automated Diff (02/13/23 11:09) Comprehensive Metabolic Panel (02/13/23 11:09) Blood Culture (02/13/23 11:09) Sputum Culture (02/13/23 11:09) Urinalysis (02/13/23 11:09) Protime With Inr (02/13/23 11:09) Partial Thromboplastin Time (02/13/23 11:09) Chest 1 View, Ap/Pa Only (02/13/23 11:09) Ed Iv/Invasive Line Start (02/13/23 11:09) Vital Signs Adult Sepsis Patie Q15M (02/13/23 11:09) O2 (02/13/23 11:09) Remove Rings In Anticipation O (02/13/23 11:09) Lactic Acid Analyzer (02/13/23 11:09) Ns Iv 1000 Ml (Sodium Chloride 0.9%) (02/13/23 11:15) Fentanyl Inj (Sublimaze Injection) (02/13/23 11:15) Covid 19 Inhouse Test (02/13/23 11:11) Influenza A And B By Pcr (02/13/23 11:11) Manual Differential (02/13/23 11:00) Amylase (02/13/23 11:43) Lipase (02/13/23 11:43) Ceftriaxone 1 Gm Pre-Mix (Rocephin 1 Gm (02/13/23 12:15) Urine Culture (02/13/23 11:40) Us Gallbladder 21093 (02/13/23 13:07) Ct Abd/Pelvis Wo(Kidney Stone) (02/13/23 13:58) Hydrocodone/Apap 5/325 Tablet (Lortab 5 (02/13/23 15:15) Medications Given in ED Vital Signs/I&O 02/13/23 02/13/23 02/13/23 02/13/23 11:00 11:00 11:24 12:29 Temp 37.0 37.8 Pulse 101 101 Resp 18 18 B/P (MAP) 87/69 87/69 (75) Pulse Ox 97 97 O2 Delivery Nasal Cannula Nasal Cannula Nasal Cannula O2 Flow Rate 2.00 2.00 FiO2 100 02/13/23 15:56 Pulse 84 Resp 18 B/P (MAP) 99/71 Pulse Ox 99 O2 Delivery Nasal Cannula O2 Flow Rate 2.00 Progress Progress Note : Time: 11:09 Progress Note Patient seen and evaluated, resting comfortably, intermittently screams out due to pain. Based on exam and symptoms, septic work-up initiated including CBC, CMP, coags, blood cultures x2, lactic acid, chest x-ray. 1240 Labs reviewed by me. CBC shows normal white count 10.3, decreased hemoglobin 9.9, decreased hematocrit 31. Previous labs show anemia. CMP shows elevated BUN 58, elevated creatinine 3.22, GFR 20. I called the shelter who reported last kidney function labs were completed September 2021, they showed creatinine 2.4, GFR 28, BUN 67. AST elevated 125, ALT 93. Amylase normal 83, lipase normal 19. Coags show elevated PT 34.6, elevated INR at 3.4, APTT elevated 59. Lactic acid normal. UA shows 3+ leukocytes, 2+ RBCs, 50-100 WBCs, large bacteria. Treated with Rocephin for UTI. Flu and COVID-negative. Chest x-ray showed no acute process, and no acute rib fractures. I called and left a message with patient's POA. According to patient's chart, he is a DNR and do not hospitalize. 1331 I called patient's POA again who confirmed that the patient is a DNR, do not hospitalize. She also stated that patient still makes all of his own decisions. I discussed this with the patient who states he does not want to be admitted. I called and spoke with patient's primary care provider, Dr. Hood, regarding patient's results at condition at this time including his continued low blood pressure. He will place an order for the shelter to hold patient's lasix for the next 3-4 days and to monitor his blood pressure. At this time, I am waiting on an US of the gallbladder. 1358 Gallbladder US showed kidney stone, CT abdomen and pelvis without contrast ordered. 1455 CT reviewed. 2.5 cm right staghorn renal calculus. This is likely the cause of the patient's pain. Results discussed with patient. I called Dr. Hood, patient's primary care provider, again to discuss these results as well. Dr. Hood will follow up with patient since patient still does not want to be hospitalized. I will discharge patient with an antibiotic, Dr. Hood requested I prescribe Keflex, and with pain medication. Discharge instructions and return pr ecautions provided to patient. Diagnostic Imaging Diagonstic Imaging: Xray Plain Films/CT/US/NM/MRI: chest Comments [facility]. [place], [place] NAME: SHRUTI VALDES [facility] REC#: [id number] PT STATUS: REG ER : 1950 PHYSICIAN: SHANNA BHATT APRN ADMIT DATE: 02/13/23/ER Signed Date of Exam:02/13/23 CHEST 1 VIEW, AP/PA ONLY CHEST 1 VIEW, AP/PA ONLY Indication: Right rib pain Comparison: 04/01/2021 Findings: No focal airspace disease in the visualized lungs. No pleural effusion or pneumothorax. Stable cardiomegaly with left pectoral pacemaker/ICD. No displaced fracture within the visible ribs. Impression: 1. No acute cardiopulmonary process by portable radiography. Dictated by: Dictated on workstation # [id number] Dict: 02/13/23 1147 Trans: 02/13/23 1202 [facility] [id number] Interpreted by: ETHAN GRAHAM MD Electronically signed by: ETHAN GRAHAM MD 02/13/23 1209 Diagonstic Imaging: Ultrasound Plain Films/CT/US/NM/MRI: abdomen Comments [facility]. [place], [place] NAME: SHRUTI VALDES [facility] REC#: [id number] PT STATUS: REG ER : 1950 PHYSICIAN: SHANNA BHATT APRN ADMIT DATE: 02/13/23/ER Signed Date of Exam:02/13/23 US GALLBLADDER [id number] PROCEDURE: US Gallbladder. TECHNIQUE: Multiple real-time grayscale images were obtained over the right upper quadrant in various projections. INDICATION: Right upper quadrant abdominal pain. FINDINGS: Liver measures 16 cm in length. No definite focal hepatic abnormality is identified. No biliary ductal dilatation is seen. Gallbladder as well as retroperitoneal structures are largely obscured by overlying bowel and patient body habitus considerations. There does appear to be an approximately 1.6 cm echogenic structure in the right kidney, which may represent a stone. No free fluid was noted. IMPRESSION: Limited study with possible nonobstructing 1.6 cm right renal calculus. Otherwise, no acute abnormality is seen on limited study. Dictated by: Dictated on workstation # [id number] Dict: 02/13/23 1410 Trans: 02/13/23 1545 [id number] Interpreted by: JOSELYN MERAZ MD Electronically signed by: JOSELYN MERAZ MD 02/13/23 1545 Diagonstic Imaging: CT Plain Films/CT/US/NM/MRI: abdomen, pelvis Comments [facility] [place] [place] NAME: SHRUTI VALDES [facility] REC#: [id number] PT STATUS: REG ER : 1950 PHYSICIAN: SHANNA BHATT APRN ADMIT DATE: 02/13/23/ER Signed Date of Exam:02/13/23 CT ABD/PELVIS WO(KIDNEY STONE) PROCEDURE: CT urinary tract, rule out kidney stone. TECHNIQUE: Multiple contiguous axial images were obtained through the abdomen and pelvis without the use of intravenous contrast. Auto Exposure Controls were utilized during the CT exam to meet ALARA standards for radiation dose reduction. INDICATION: Right abdominal pain and recent fall. There is dependent atelectasis and/or pneumonitis within the lung bases, bilaterally. Note is also made of coronary artery calcification and calcification at the aortic valve. Unenhanced images of liver, gallbladder, pancreas, adrenal glands and spleen are unremarkable. There is an approximately 0.5 cm nonobstructing stone in the lower pole of the left kidney with an exophytic nodule along the lower pole left kidney measuring 1.7 cm in diameter which likely represents a cyst. There is staghorn calculus involving the lower half of right renal collecting system measuring up to approximately 2.5 cm in size. This is associated with mild right hydronephrosis and right perinephric edema and/or inflammation. No definite ureteric stone or dilatation is identified. There is moderate aortoiliac atherosclerotic calcification. Surgical findings are seen in the right anterior abdominal wall. No organized fluid collection is appreciated. IMPRESSION: Right staghorn renal calculus with associated perinephric edema and inflammation which may be related to pyelonephritis. No obstructing ureteric calculus is identified. Note is also made of nonobstructing stone in the left kidney with basilar atelectasis and/or pneumonitis in the visualized portions of both lungs. Dictated by: Dictated on workstation # [id number] Dict: 02/13/23 1424 Trans: 02/13/23 1544 [facility] [id number] Interpreted by: JOSELYN MERAZ MD Electronically signed by: JOSELYN MERAZ MD 02/13/23 1544 Focused Exam Lactate Level 02/13/23 11:00: Lactic Acid Level 1.15 Lactic Acid Level Laboratory Tests Test 02/13/23 11:00 Lactic Acid Level 1.15 MMOL/L (0.50-2.00) Departure Communication (Admissions) Spoke with Dr. Hood, patient's primary care provider, twice. See progress note. Impression Primary Impression: Pyelonephritis Additional Impressions: Staghorn calculus Hypotension Disposition: 01 HOME, SELF-CARE Condition: Stable Departure-Patient Inst. Decision time for Depature: 15:02 Referrals: KHARI HOOD MD (PCP/Family) Primary Care Physician Patient Instructions: Kidney Infection Add. Discharge Instructions: Complete full course of antibiotic, even if you begin to feel better. Hold Lasix for 3 to 4 days. Monitor blood pressure, and report to primary care provider. Take Hydrocodone/Tylenol as needed for pain. Scripts Cephalexin (Cephalexin) 500 Mg Tablet 500 MG PO QID for 14 Days, #56 TAB 0 Refills Prov: SHANNA BHATT APRN 02/13/23 Hydrocodone/Acetaminophen (Hydrocodone-Acetamin 5-325 mg) 5 Mg-325 Mg Tablet 1 TAB PO Q4H PRN for PAIN-MODERATE (5-7), #20 TAB 0 Refills Prov: SHANNA BHATT APRN 02/13/23 SHANNA BHATT APRN Feb 13, 2023 11:09
[2023-02-13] MEDS ORDERED: fentaNYL INJ 100 MCG/2 ML AMP IVP ONE (11:15)
[2023-02-13] MEDS ORDERED: NS IV 1000 ML 1,000 ML IV SCH (11:15)
[2023-02-13 11:17] LABS: BASOPHILS % (AUTO) 0 % (0-10); EOSINOPHILS # (AUTO) 0.1 10^3/uL (0.0-0.3); EOSINOPHILS % (AUTO) 1 % (0-10); HEMATOCRIT 31 % (40-54); HEMOGLOBIN 9.9 g/dL (13.3-17.7); LYMPHOCYTES # (AUTO) 0.3 10^3/uL (1.0-4.0); LYMPHOCYTES % (AUTO) 2 % (12-44); MEAN CORPUSCULAR HEMOGLOBIN 28 pg (25-34); MEAN CORPUSCULAR HGB CONC 32 g/dL (32-36); MEAN CORPUSCULAR VOLUME 89 fL (80-99); MEAN PLATELET VOLUME 9.8 fL (9.0-12.2); MONOCYTES # (AUTO) 0.4 10^3/uL (0.0-1.0); MONOCYTES % (AUTO) 3 % (0-12); NEUTROPHILS # (AUTO) 9.5 10^3/uL (1.8-7.8); NEUTROPHILS % (AUTO) 92 % (42-75); PLATELET COUNT 211 10^3/uL (130-400); WHITE BLOOD COUNT 10.3 10^3/uL (4.3-11.0)
[2023-02-13 11:21] LABS: ALBUMIN 3.2 GM/DL (3.2-4.5)
[2023-02-13 11:22] LABS: POTASSIUM 4.3 MMOL/L (3.6-5.0)
[2023-02-13 11:23] LABS: CALCIUM 9.1 MG/DL (8.5-10.1)
[2023-02-13 11:24] LABS: TOTAL PROTEIN 7.2 GM/DL (6.4-8.2)
[2023-02-13 11:26] LABS: BILIRUBIN,TOTAL 1.1 MG/DL (0.1-1.0); INR 3.4 (0.8-1.4); PROTHROMBIN TIME PATIENT 34.6 SEC (12.2-14.7)
[2023-02-13 11:28] LABS: CREATININE SERUM 3.22 MG/DL (0.60-1.30)
[2023-02-13 11:37] LABS: BAND NEUTROPHILS 43 %; LYMPHOCYTES % (MANUAL) 1 %; MONOCYTES % (MANUAL) 2 %; NEUTROPHILS % (MANUAL) 54 %
[2023-02-13 11:38] LABS: ANISOCYTOSIS MODERATE; ELLIPT/OVALOCYTES SLIGHT
[2023-02-13 11:54] LABS: BILIRUBIN,URINE NEGATIVE (NEGATIVE); CLARITY,URINE SL CLOUDY; COLOR,URINE YELLOW; GLUCOSE, URINE (UA) TRACE (NEGATIVE); KETONES,URINE NEGATIVE (NEGATIVE); LEUKOCYTE ESTERASE ,URINE 3+ (NEGATIVE); NITRITE,URINE NEGATIVE (NEGATIVE); PH,URINE 6.5 (5-9); PROTEIN,URINE TRACE (NEGATIVE)
[2023-02-13 11:54] LABS: AMYLASE 83 U/L (25-125)
[2023-02-13 12:03] LABS: WBC,URINE 50-100 /HPF
[2023-02-13 12:03] LABS: LIPASE 19 U/L (8-78)
--- NOTE | 2023-02-13 12:03 | Diagnostic Imaging Report ---
CHEST 1 VIEW, AP/PA ONLY Indication: Right rib pain Comparison: 04/01/2021 Findings: No focal airspace disease in the visualized lungs. No pleural effusion or pneumothorax. Stable cardiomegaly with left pectoral pacemaker/ICD. No displaced fracture within the visible ribs. Impression: 1. No acute cardiopulmonary process by portable radiography. Dictated by: Dictated on workstation # [id number]
[2023-02-13 12:04] LABS: BACTERIA,URINE LARGE /HPF; HYALINE CASTS, URINE 0-2 /LPF; SQUAMOUS EPITHELIAL CELL,UR 0-2 /HPF
[2023-02-13] MEDS ORDERED: cefTRIAXone 1 GM PRE-MIX 50 ML IV ONE (12:15)
--- NOTE | 2023-02-13 14:15 | Diagnostic Imaging Report ---
PROCEDURE: US Gallbladder. TECHNIQUE: Multiple real-time grayscale images were obtained over the right upper quadrant in various projections. INDICATION: Right upper quadrant abdominal pain. FINDINGS: Liver measures 16 cm in length. No definite focal hepatic abnormality is identified. No biliary ductal dilatation is seen. Gallbladder as well as retroperitoneal structures are largely obscured by overlying bowel and patient body habitus considerations. There does appear to be an approximately 1.6 cm echogenic structure in the right kidney, which may represent a stone. No free fluid was noted. IMPRESSION: Limited study with possible nonobstructing 1.6 cm right renal calculus. Otherwise, no acute abnormality is seen on limited study. Dictated by: Dictated on workstation # [id number]
--- NOTE | 2023-02-13 14:34 | Diagnostic Imaging Report ---
PROCEDURE: CT urinary tract, rule out kidney stone. TECHNIQUE: Multiple contiguous axial images were obtained through the abdomen and pelvis without the use of intravenous contrast. Auto Exposure Controls were utilized during the CT exam to meet ALARA standards for radiation dose reduction. INDICATION: Right abdominal pain and recent fall. There is dependent atelectasis and/or pneumonitis within the lung bases, bilaterally. Note is also made of coronary artery calcification and calcification at the aortic valve. Unenhanced images of liver, gallbladder, pancreas, adrenal glands and spleen are unremarkable. There is an approximately 0.5 cm nonobstructing stone in the lower pole of the left kidney with an exophytic nodule along the lower pole left kidney measuring 1.7 cm in diameter which likely represents a cyst. There is staghorn calculus involving the lower half of right renal collecting system measuring up to approximately 2.5 cm in size. This is associated with mild right hydronephrosis and right perinephric edema and/or inflammation. No definite ureteric stone or dilatation is identified. There is moderate aortoiliac atherosclerotic calcification. Surgical findings are seen in the right anterior abdominal wall. No organized fluid collection is appreciated. IMPRESSION: Right staghorn renal calculus with associated perinephric edema and inflammation which may be related to pyelonephritis. No obstructing ureteric calculus is identified. Note is also made of nonobstructing stone in the left kidney with basilar atelectasis and/or pneumonitis in the visualized portions of both lungs. Dictated by: Dictated on workstation # [id number]
[2023-02-13] MEDS ORDERED: ACET-2267 PO (15:08)
[2023-02-13] MEDS ORDERED: CEPH500T PO ×2 (15:08→15:47)
[2023-02-13] MEDS ORDERED: HYDROcodone/APAP 5 MG/325 MG (LORTAB) TAB PO ONE (15:15)
[2023-02-13] MEDS ORDERED: ACHD5005 PO (15:46)
[2023-02-13 15:56] VITALS: BP 99/71
== END 2023-02-13 16:18 | disposition home or self-care (01) ==
LOC: EDUNIT# 10:52 → ER 10:53
DX: N12 Tubulo-interstitial nephritis, not specified as acute or chronic (principal); N20.0 Calculus of kidney; I95.9 Hypotension, unspecified; R79.89 Other specified abnormal findings of blood chemistry; R07.81 Pleurodynia; R74.01 Elevation of levels of liver transaminase levels; R79.1 Abnormal coagulation profile; Z95.1 Presence of aortocoronary bypass graft; Z20.822 Contact with and (suspected) exposure to COVID-19; Z99.81 Dependence on supplemental oxygen; W19.XXXA Unspecified fall, initial encounter
CPT/HCPCS: 36415; 71045; 74176; 76705; 80053; 81000; 82150; 83605; 83690; 85007; 85027; 85610; 85730; 87040; 87077; 87088; 87636

== ENCOUNTER 2023-05-04 16:38 | Emergency (ER) | payer MEDICARE, MEDICAID ==
[~2023-05-04] VITALS: Ht 172 cm; Wt 80.0 kg
[~2023-05-04 16:38] MED LIST changes: +ACET-2267 PO; +ACHD5005 PO; +CEPH500T PO; +POTA-330 PO; -POTA-51 PO
--- NOTE | 2023-05-04 18:42 | ED General ---
General Chief Complaint: General Problems/Pain Stated Complaint: WEAKNESS Nursing Triage Note: PT TO FT2 PER W/C PT HAD SEEN DR SCRUGGS TODAY, HAD LAB WORK AND CREATIN IS ELEVATED History of Present Illness Date Seen by Provider: May 04, 2023 Time Seen by Provider: 18:38 Initial Comments PT ARRIVES VIA POV FROM [facility] WITH DYNAMOMETER TUNER PT STATES "JUST HAVEN'T FELT GOOD FOR 2 WEEKS" "DON'T FEEL LIKE EATING" C/O GENERALIZED WEAKNESS NO OTHER SPECIFIC COMPLAINTS HE DENIES PAIN ANYWHERE DENIES CHEST PAIN OR SHORTNESS OF BREATH DENIES NAUSEA/VOMITING/DIARRHEA/CONSTIPATION OR ABDOMINAL PAIN NO NEW URINARY COMPLAINTS NO KNOWN FEVER/SWEATS/CHILLS SAW DR. SCRUGGS TODAY AND HAD LAB DONE AND WAS TOLD HIS CREATININE WAS ELEVATED. LAST RENAL FUNCTION TESTS DONE HERE WERE ON 02/13/22 AND BUN 58, CR 3.22 PT HAS KNOWN CHRONIC RENAL FAILURE AND HAS A STAGHORN CALCULUS PT ALSO WITH CHRONIC GENERALIZED WEAKNESS, POOR MOBILITY AND CHRONIC GENERALIZED PAIN NURSE FROM [facility] SPOKE WITH RN, AND REPORTS THAT PT'S BLOOD PRESSURE IS FREQUENTLY VERY LOW AND THEY FREQUENTLY HAVE TO HOLD HIS BLOOD PRESSURE MEDICATIONS DUE TO HYPOTENSION. PT HAS HTN, CAD, ATRIAL FIBRILLATION, V-TACH, SVT, CHF, CHRONIC RESPIRATORY FAILURE, POOR MOBILITY, CHRONIC RENAL FAILURE WITH STAGHORN CALCULUS, INFLAMMATORY LIVER DISEASE, CHRONIC GENERALIZED PAIN HE HAS A PACEMAKER IN PLACE HE IS MAINTAINED ON ASIPIRIN, ELIQUIS,AMIODARONE, JARDIANCE, CARVEDILOL, ENTRESTO, LASIX, METOLAZONE HE HAS BEEN REFERRED TO FOR NEPHRECTOMY/REMOVAL OF STAGHORN CALCULUS. HE IS FOLLOWED BY CARDIOLOGY, NEPHROLOGY AND UROLOGY PT HAS HAD COVID VACCINE X 3 PCP: DR. SCRUGGS IN [place] Allergies and Home Medications Allergies Coded Allergies: No Known Drug Allergies (Unverified , 02/13/23) Patient Home Medication List Amiodarone HCl (Amiodarone HCl) 200 Mg Tablet, 400 MG PO BID Prescribed by: CANDI GLOVER on 08/24/19 1238 Apixaban (Eliquis) 5 Mg Tablet, 5 MG PO BID, (Reported) Entered as Reported by: JULIO ESQUIVEL on 09/28/22 0855 Aspirin (Aspirin EC) 81 Mg Tablet.dr 81 MG PO DAILY, (Reported) Entered as Reported by: TESSIE CASTRO on 08/19/19 140 Atorvastatin Calcium (Atorvastatin Calcium) 40 Mg Tablet, 40 MG PO DAILY, (Reported) Entered as Reported by: TESSIE CASTRO on 08/19/19 140 Calcium Carbonate (Tums) 200 Mg Calcium (500 Mg) Tab.chew, 500 MG PO, (Reported) Entered as Reported by: JULIO ESQUIVEL on 09/28/22 0855 Carvedilol (Coreg) 25 Mg Tab, 12.5 MG PO BID, (Reported) Entered as Reported by: TESSIE CASTRO on 08/19/19 140 Cephalexin (Cephalexin) 500 Mg Tablet, 500 MG PO QID Prescribed by: Shanna Pastor on 02/13/23 1547 Cetirizine HCl (Zyrtec) 10 Mg Capsule, 10 MG PO, (Reported) Entered as Reported by: JULIO ESQUIVEL on 09/28/22 08 Citalopram Hydrobromide (Citalopram HBr) 10 Mg Tablet, 10 MG PO DAILY, (Reported) Entered as Reported by: JULIO ESQUIVEL on 09/28/22 0855 Cyanocobalamin (Vitamin B-12) Unknown Strength Tablet, 1,000 MCG PO DAILY, (Reported) Entered as Reported by: JULIO ESQUIVEL on 09/28/22 08 Empagliflozin (Jardiance) 10 Mg Tablet, 10 MG PO DAILY, (Reported) Entered as Reported by: JULIO ESQUIVEL on 09/28/22 0855 Furosemide (Lasix) 40 Mg Tablet, 20 MG PO BID, (Reported) Entered as Reported by: TESSIE CASTRO on 08/19/19 140 Hydrocodone/Acetaminophen (Hydrocodone-Acetamin 5-325 mg) 5 Mg-325 Mg Tablet, 1 TAB PO Q4H PRN for PAIN-MODERATE (5-7) Prescribed by: Shanna Pastor on 02/13/23 154 Metolazone (Metolazone) 2.5 Mg Tablet, 2.5 MG PO UD, (Reported) Entered as Reported by: JULIO ESQUIVEL on 09/28/22 0855 Pantoprazole Sodium (Protonix) 40 Mg Tablet.dr, 40 MG PO DAILY, (Reported) Entered as Reported by: JULIO ESQUIVEL on 09/28/22 0855 Potassium Chloride (Potassium Chloride) 20 Meq Tablet.er, 30 MEQ PO DAILY, (Reported) Entered as Reported by: TESSIE CASTRO on 08/19/19 1405 Sacubitril/Valsartan (Entresto 24 mg-26 mg Tablet) 24 Mg-26 Mg Tablet, 1 TAB PO BID, (Reported) Entered as Reported by: JULIO ESQUIVEL on 09/28/22 0855 Review of Systems Review of Systems Constitutional: see HPI Respiratory: no symptoms reported Cardiovascular: no symptoms reported Gastrointestinal: see HPI; No abdominal pain; loss of appetite; No nausea, No vomiting Genitourinary: no symptoms reported Musculoskeletal: no symptoms reported Skin: no symptoms reported Psychiatric/Neurological: No Symptoms Reported Hematologic/Lymphatic: No Symptoms Reported Past Rowokpu-Eukgml-Eugmyn Hx Immunizations Up To Date First/Initial COVID19 Vaccinat: YES Second COVID19 Vaccination Ravindra: YES Third COVID19 Vaccination Date: YES Seasonal Allergies Seasonal Allergies: Yes Past Medical History Surgery/Hospitalization HX: CHF,A-FIB ARTHRITIS, WEAKNESS, CHRONIC KIDNEY DISEASE, PACEMAKER Surgeries: Yes Cardiac, CABG, Pacemaker Respiratory: No Cardiac: Yes (PACEMAKER IN PLACE; CABG) Atrial Fibrillation, Cardiomyopathy, Coronary Artery Disease, High Cholesterol, Hypertension, Irregular Heartbeat Neurological: No Reproductive Disorders: No Genitourinary: Yes (CHRONIC RENAL FAILURE-NO DIALYSIS; STAGHORN CALCULUS) Kidney Infection, Bladder Infection, Renal Failure Gastrointestinal: No Musculoskeletal: Yes (CHRONIC PAIN; POOR MOBILITIY; GENERALIZED WEAKNESS) Arthritis Endocrine: No HEENT: No Glaucoma Cancer: No Psychosocial: No Integumentary: Yes (scarring to arms) Blood Disorders: No Adverse Reaction/Blood Tranf: No Family Medical History Heart Disease, Cancer, CAD Under 55 Years Old CARDIAC CATH 07/[address] GUILLEN: CONCLUSION: 1. Severe [place] coronary artery disease in the left system with patent jump graft vein graft to the diagonal and LAD and patent vein graft to the obtuse marginal branch with good flow in the left system 2. Dominant right coronary artery with tubular stenosis 60 percent stenosis at the midportion, tortuous artery, there are 2 occluded vein graft presumably to the right coronary system 3. Normal left ventricular end-diastolic pressure 4. Hypertensive changes in the ascending aorta and aortic arch, no dissection or aneurysm DISCUSSION AND RECOMMENDATION: continue to maximize medical therapy, patient will need to have ICD 07/2019--PACEMAKER PLACED BY DR. GAYLE Physical Exam Vital Signs Vital Signs - First Documented 05/04/23 05/04/23 17:05 19:25 Temp 37.3 Pulse 84 Resp 22 B/P (MAP) 95/61 (72) Pulse Ox 99 Capillary Refill : Less Than 3 Seconds Height, Weight, BMI Height: '67.00" Weight: 210lbs. 0.3oz. 96.710998lh; 27.00 BMI Method:Stated General Appearance: No Apparent Distress, WD/WN HEENT: PERRL/EOMI, Other (POOR DENTITION) Neck: Normal Inspection Respiratory: Normal Breath Sounds, No Accessory Muscle Use, No Respiratory Distress Cardiovascular: Systolic Murmur (3-4/6), Irregularly Irregular Gastrointestinal: Non Tender, Soft Back: No CVA Tenderness Extremity: Normal Capillary Refill, Pedal Edema (TRACE EDEMA, WITH CHRONIC VENOUS STASIS CHANGES BILATERALLY) Neurologic/Psychiatric: Alert, Oriented x3, No Motor/Sensory Deficits, tooling manager II- XII Norm as Tested, Other (FLAT AFFECT) Skin: Normal Color, Warm/Dry Focused Exam Sepsis Stage: Ruled Out Possible Source: Unknown Lactate Level 05/04/23 18:58: Lactic Acid Level 0.95 Time of Focused Exam: 20:00 Respiratory: Normal Breath Sounds, No Accessory Muscle Use, No Respiratory Distress Cardiovascular: Irregularly Irregular Capillary Refill: Less Than 3 Seconds Skin: normal color, warm/dry Lactic Acid Level Laboratory Tests Test 05/04/23 18:58 Lactic Acid Level 0.95 MMOL/L (0.50-2.00) Within 3hrs of presentation: Admin fluids, Admin ABX, Blood cultures prior to ABX's, Focus exam, Lactate level Progress/Results/Core Measures Suspected Sepsis SIRS Temperature: Pulse: 84 Respiratory Rate: 22 Laboratory Tests 05/04/23 18:43: White Blood Count 9.1 Blood Pressure 95 /61 Mean: 72 05/04/23 18:58: Lactic Acid Level 0.95 Laboratory Tests 05/04/23 18:43: Creatinine 3.25H, INR Comment 3.4H, Platelet Count 261, Total Bilirubin 0.7 Results/Orders Lab Results Laboratory Tests Test 05/04/23 18:43 05/04/23 18:58 05/04/23 19:25 05/04/23 19:54 Range/Units White Blood Count 9.1 4.3-11.0 10^3/uL Red Blood Count 3.63 L 4.30-5.52 10^6/uL Hemoglobin 10.1 L 13.3-17.7 g/dL Hematocrit 31 L 40-54 % Mean Corpuscular Volume 86 80-99 fL Mean Corpuscular Hemoglobin 28 25-34 pg Mean Corpuscular Hemoglobin Concent 32 32-36 g/dL Red Cell Distribution Width 16.9 H 10.0-14.5 % Platelet Count 261 130-400 10^3/uL Mean Platelet Volume 9.7 9.0-12.2 fL Immature Granulocyte % (Auto) 0 % Neutrophils (%) (Auto) 79 H 42-75 % Lymphocytes (%) (Auto) 8 L 12-44 % Monocytes (%) (Auto) 13 H 0-12 % Eosinophils (%) (Auto) 0 0-10 % Basophils (%) (Auto) 0 0-10 % Neutrophils # (Auto) 7.1 1.8-7.8 10^3/uL Lymphocytes # (Auto) 0.7 L 1.0-4.0 10^3/uL Monocytes # (Auto) 1.1 H 0.0-1.0 10^3/uL Eosinophils # (Auto) 0.0 0.0-0.3 10^3/uL Basophils # (Auto) 0.0 0.0-0.1 10^3/uL Immature Granulocyte # (Auto) 0.0 0.0-0.1 10^3/uL Erythrocyte Sedimentation Rate > 140 H 0-30 MM/HR Prothrombin Time 33.6 H 12.2-14.7 SEC INR Comment 3.4 H 0.8-1.4 Activated Partial Thromboplast Time 72 H 24-35 SEC Sodium Level 135 135-145 MMOL/L Potassium Level 4.2 3.6-5.0 MMOL/L Chloride Level 98 98-107 MMOL/L Carbon Dioxide Level 27 21-32 MMOL/L Anion Gap 10 5-14 MMOL/L Blood Urea Nitrogen 69 H 7-18 MG/DL Creatinine 3.25 H 0.60-1.30 MG/DL Estimat Glomerular Filtration Rate 20 BUN/Creatinine Ratio 21 Glucose Level 92 70-105 MG/DL Calcium Level 8.9 8.5-10.1 MG/DL Corrected Calcium 9.7 8.5-10.1 MG/DL Magnesium Level 2.5 H 1.6-2.4 MG/DL Total Bilirubin 0.7 0.1-1.0 MG/DL Aspartate Amino Transf (AST/SGOT) 215 H 5-34 U/L Alanine Aminotransferase (ALT/SGPT) 164 H 0-55 U/L Alkaline Phosphatase 148 H 40-136 U/L Total Creatine Kinase 34 30-200 U/L Creatine Kinase MB 0.5 <6.6 NG/ML Myoglobin 115.3 H 10.0-92.0 NG/ML Troponin I < 0.028 <0.028 NG/ML C-Reactive Protein High Sensitivity 22.81 H 0.00-0.50 MG/DL B-Type Natriuretic Peptide 256.2 H <100.0 PG/ML Total Protein 7.2 6.4-8.2 GM/DL Albumin 3.0 L 3.2-4.5 GM/DL Lipase 34 8-78 U/L TSH [place] Testing 1.69 0.35-4.94 UIU/ML Lactic Acid Level 0.95 0.50-2.00 MMOL/L Influenza Type A (RT-PCR) Not Detected Not Detecte Influenza Type B (RT-PCR) Not Detected Not Detecte SARS-CoV-2 RNA (RT-PCR) Not Detected Not Detecte Urine Color YELLOW Urine Clarity CLEAR Urine pH 6.0 5-9 Urine Specific [place] 1.010 L 1.016-1.022 Urine Protein NEGATIVE NEGATIVE Urine Glucose (UA) TRACE H NEGATIVE Urine Ketones NEGATIVE NEGATIVE Urine Nitrite NEGATIVE NEGATIVE Urine Bilirubin NEGATIVE NEGATIVE Urine Urobilinogen 1.0 < = 1.0 MG/DL Urine Leukocyte Esterase 3+ H NEGATIVE Urine RBC (Auto) 3+ H NEGATIVE Urine RBC 2-5 H /HPF Urine WBC 10-25 H /HPF Urine Crystals NONE /LPF Urine Bacteria LARGE H /HPF Urine Casts PRESENT /LPF Urine Hyaline Casts 0-2 H /LPF Urine Mucus NEGATIVE /LPF Urine Culture Indicated YES My Orders Orders - JUAN CARLOS STEWART DO Ed Iv/Invasive Line Start (05/04/23 18:38) Ekg Tracing (05/04/23 18:38) Monitor-Rhythm Ecg Trace Only (05/04/23 18:38) Chest 1 View, Ap/Pa Only (05/04/23 18:38) Bnp Zev (05/04/23 18:38) Cbc With Automated Diff (05/04/23 18:38) Comprehensive Metabolic Panel (05/04/23 18:38) Creatine Kinase (05/04/23 18:38) Creatine Kinase Mb (05/04/23 18:38) Hs C Reactive Protein (05/04/23 18:38) Lactic Acid Analyzer (05/04/23 18:38) Lipase (05/04/23 18:38) Magnesium (05/04/23 18:38) Protime With Inr (05/04/23 18:38) Partial Thromboplastin Time (05/04/23 18:38) Thyroid Analyzer (05/04/23 18:38) Ua Culture If Indicated (05/04/23 18:38) Blood Culture (05/04/23 18:38) Erythrocyte Sedimentation Rate (05/04/23 18:38) Myoglobin Serum (05/04/23 18:38) Troponin I Zev (05/04/23 18:38) Covid 19 Inhouse Test (05/04/23 18:38) Influenza A And B By Pcr (05/04/23 18:38) Ed Iv/Invasive Line Start (05/04/23 18:38) Vital Signs Adult Sepsis Patie Q15M (05/04/23 18:38) Remove Rings In Anticipation O (05/04/23 18:38) Ns Iv 1000 Ml (Sodium Chloride 0.9%) (05/04/23 18:45) Urine Culture (05/04/23 19:54) Furosemide Injection (Lasix Injection) (05/04/23 20:30) Ceftriaxone Iv/Im (Rocephin Iv/Im) (05/04/23 20:30) Medications Given in ED Current Medications Medications Dose Ordered Sig/Jada Route Start Time Stop Time Status Last Admin Dose Admin Ceftriaxone Sodium 1000 mg/ Sodium Chloride 50 ml @ 100 mls/hr ONCE ONCE IV 05/04/23 20:30 05/04/23 20:59 05/04/23 20:36 100 MLS/HR Furosemide 40 mg ONCE ONCE IVP 05/04/23 20:30 05/04/23 20:31 DC 05/04/23 20:36 40 MG Vital Signs/I&O 05/04/23 05/04/23 17:05 19:25 Temp 37.3 Pulse 84 Resp 22 B/P (MAP) 95/61 (72) Pulse Ox 99 Capillary Refill : Less Than 3 Seconds Blood Pressure Mean: 72 Progress Note : Progress Note VITALS ON ADMIT: TEMP 37.3 = 99.2, BP 95/61,HR 84, RR 22, O2 SAT 99% ON ROOM AIR GIVEN: -IV FLUIDS -ROCEPHIN -LASIX REVIEWED PT'S SENIOR LIVING PAPERS PT IS DNR, AND SPECIFICALLY IT STATES "DO NOT HOSPITALIZE-TREAT IN PLACE APPROPRIATE" LABS INCLUDING CBC, CMP, TROPONIN, PT/PTT, UA, COVID AND FLU TESTING EKG AND CXR ORDERED. PRIOR RENAL FUNCTION TESTS ON 02/13/23 BUN 58, CR 3.22 --PT WITH CHRONIC RENAL FAILURE TODAY'S RENAL FUNCTION TESTS BUN 69, CR 3.25 PRIOR LIVER ENZYMES ON 02/13/23 BILI 1.1, AST 125, ALT 93--PT WITH KNOWN HISTORY OF INFLAMMATORY LIVER DISEASE TODAY'S LIVER ENZYMES BILI 0.7, AST 215, ALT 164. ELECTROLYTES ARE NORMAL--NO HYPER OR HYPO [place]. NORMAL LACTIC ACID AND NORMAL WBC CXR WITH MILD CHF, NO INFILTRATES PT DID HAVE SHORT RUN OF V-TACH DURING ER STAY--ASYMPTOMATIC AND NO CHANGE IN BP OR O2 SAT. PT HAS KNOWN HISTORY OF V-TACH WITH PACEMAKER IN PLACE AND IS ON ANTIARRHYTHMICS AND ANTICOAGULATION. PT HAD NO COMPLAINTS DURING ER STAY. DISCUSSED TEST RESULTS, ANTICIPATED COURSE, SYMPTOMATIC TREATMENT, MEDICATIONS, NEED FOR FOLLOW UP AND RETURN PRECAUTIONS REVIEWED SENIOR LIVING PAPERS, OLD RECORDS INCLUDING ER VISITS, ADMITS/H&P'S/CO NSULTS/DISCHARGE SUMMARIES, TESTS/PROCEDURES ECG Initial ECG Impression Date: May 04, 2023 Initial ECG Impression Time: 19:43 Initial ECG Rate: 83 Initial ECG Rhythm: A Fib/Flutter (WITH VENTRICULAR PACING) Comment ONLY EKG ON FILE WAS DONE PRIOR TO PACEMAKER PLACEMENT, THEREFORE HAS CHANGED IN APPEARANCE, PT IS VENTRICULARLY PACED NOW. INTERPRETED BY ME Diagnostic Imaging Comments CXR--PER RADIOLOGIST REPORT AT 2001 FINDINGS: Single frontal radiographic view of the chest was obtained and demonstrates mild cardiomegaly and mild pulmonary vascular congestion. Lungs show low inspiratory volumes, but are otherwise clear. There is no focal consolidation, large effusion, nor pneumothorax. Left-sided AICD and sternotomy wires noted. Osseous structures show no gross acute abnormalities. IMPRESSION: 1. Cardiomegaly with pulmonary vascular congestion. Reviewed: Reviewed by Me Departure Communication (Admissions) 2029--SPOKE WITH DR. GUILLEN, BAR POINTER, HE AGREES TO SEND PT BACK TO SENIOR LIVING, AND HAVE PT KEEP ROUTINE SCHEDULED APPOINTMENT, OR SOONER IF NEEDED Impression Primary Impression: Generalized weakness Additional Impressions: Chronic renal failure Chronic atrial fibrillation PACEMAKER IN PLACE HISTORY OF CAD WITH CABG Chronic CHF Ventricular tachycardia (paroxysmal) Urinary tract infection Chronic respiratory failure Disposition: SNF Condition: Stable Departure-Patient Inst. Decision time for Depature: 20:35 Referrals: KHARI SCRUGGS MD (PCP/Family) Primary Care Physician Patient Instructions: Chronic Kidney Disease (DC), Generalized Weakness, Heart Failure, Adult (DC), Liver Function Test, Urinary Tract Infection, Adult (DC) Add. Discharge Instructions: CONTINUE YOUR MEDICATIONS PRESCRIBED FOLLOW UP WITH DR. SCRUGGS IN 3-4 DAYS FOR FURTHER CARE FOLLOW UP WITH [facility] SCHEDULED FOR KIDNEY PROBLEMS FOLLOW UP WITH DR. GUILLEN SCHEDULED FOR FOLLOW UP ON CHRONIC HEART DISEASE RETURN TO ER IF SYMPTOMS WORSEN All discharge instructions reviewed with patient and/or family. Voiced understanding. Scripts Cefdinir (Cefdinir) 300 Mg Capsule 300 MG PO BID, #20 CAP Prov: JUAN CARLOS STEWART DO 05/04/23 JUAN CARLOS STEWART DO May 04, 2023 18:42
[2023-05-04] MEDS ORDERED: NS IV 1000 ML 1,000 ML IV SCH (18:45)
[2023-05-04 18:49] LABS: CHLORIDE 98 MMOL/L (98-107); POTASSIUM 4.2 MMOL/L (3.6-5.0); SODIUM 135 MMOL/L (135-145)
[2023-05-04 18:50] LABS: CALCIUM 8.9 MG/DL (8.5-10.1)
[2023-05-04 18:52] LABS: GLUCOSE 92 MG/DL (70-105); TOTAL PROTEIN 7.2 GM/DL (6.4-8.2)
[2023-05-04 18:53] LABS: BILIRUBIN,TOTAL 0.7 MG/DL (0.1-1.0); CARBON DIOXIDE 27 MMOL/L (21-32)
[2023-05-04 18:54] LABS: BASOPHILS % (AUTO) 0 % (0-10); EOSINOPHILS % (AUTO) 0 % (0-10); HEMATOCRIT 31 % (40-54); HEMOGLOBIN 10.1 g/dL (13.3-17.7); LYMPHOCYTES # (AUTO) 0.7 10^3/uL (1.0-4.0); LYMPHOCYTES % (AUTO) 8 % (12-44); MEAN CORPUSCULAR HEMOGLOBIN 28 pg (25-34); MEAN CORPUSCULAR HGB CONC 32 g/dL (32-36); MEAN CORPUSCULAR VOLUME 86 fL (80-99); MEAN PLATELET VOLUME 9.7 fL (9.0-12.2); MONOCYTES # (AUTO) 1.1 10^3/uL (0.0-1.0); MONOCYTES % (AUTO) 13 % (0-12); NEUTROPHILS # (AUTO) 7.1 10^3/uL (1.8-7.8); NEUTROPHILS % (AUTO) 79 % (42-75); PLATELET COUNT 261 10^3/uL (130-400); WHITE BLOOD COUNT 9.1 10^3/uL (4.3-11.0)
[2023-05-04 18:55] LABS: ALKALINE PHOSPHATASE 148 U/L (40-136); GFR ESTIMATED 20
[2023-05-04 18:58] LABS: ALANINE AMINOTRANSFERASE 164 U/L (0-55); MAGNESIUM 2.5 MG/DL (1.6-2.4)
[2023-05-04 19:00] LABS: CREATINE KINASE 34 U/L (30-200); LIPASE 34 U/L (8-78)
[2023-05-04 19:02] LABS: INR 3.4 (0.8-1.4); PROTHROMBIN TIME PATIENT 33.6 SEC (12.2-14.7)
[2023-05-04 19:07] LABS: CREATINE KINASE MB 0.5 NG/ML (<6.6)
[2023-05-04 19:08] LABS: BUN/CREATININE RATIO 21; CREATININE SERUM 3.25 MG/DL (0.60-1.30)
[2023-05-04 19:16] LABS: ERYTHROCYTE SEDIMENTATION RATE > 140 MM/HR (0-30)
[2023-05-04 19:19] LABS: TSH (THYROID ANALYZER) 1.69 UIU/ML (0.35-4.94)
--- NOTE | 2023-05-04 19:36 | Diagnostic Imaging Report ---
INDICATION: Elevated creatinine. Weakness. COMPARISON: 02/13/2023 FINDINGS: Single frontal radiographic view of the chest was obtained and demonstrates mild cardiomegaly and mild pulmonary vascular congestion. Lungs show low inspiratory volumes, but are otherwise clear. There is no focal consolidation, large effusion, nor pneumothorax. Left-sided AICD and sternotomy wires noted. Osseous structures show no gross acute abnormalities. IMPRESSION: 1. Cardiomegaly with pulmonary vascular congestion. Dictated by: Dictated on workstation # [id number]
[2023-05-04 20:00] LABS: BILIRUBIN,URINE NEGATIVE (NEGATIVE); CLARITY,URINE CLEAR; COLOR,URINE YELLOW; GLUCOSE, URINE (UA) TRACE (NEGATIVE); KETONES,URINE NEGATIVE (NEGATIVE); LEUKOCYTE ESTERASE ,URINE 3+ (NEGATIVE); NITRITE,URINE NEGATIVE (NEGATIVE); PROTEIN,URINE NEGATIVE (NEGATIVE)
[2023-05-04 20:19] LABS: BACTERIA,URINE LARGE /HPF; HYALINE CASTS, URINE 0-2 /LPF
[2023-05-04] MEDS ORDERED: FUROSEMIDE 40 MG/4 ML INJ (LASIX) IVP ONE (20:30)
[2023-05-04] MEDS ORDERED: cefTRIAXone IV/IM 1,000 MG in NS (IVPB) 50 ML IV ONE (20:30)
[2023-05-04] MEDS ORDERED: CEFD300C3 PO (20:43)
[2023-05-04 21:13] VITALS: BP 88/60
== END 2023-05-04 21:15 ==
LOC: EDUNIT# 16:38 → ER 16:40
DX: R53.1 Weakness (principal); N39.0 Urinary tract infection, site not specified; J96.10 Chronic respiratory failure, unspecified whether with hypoxia or hypercapnia; I47.20 Ventricular tachycardia, unspecified; I13.0 Hypertensive heart and chronic kidney disease with heart failure and stage 1 through stage 4 chronic kidney disease, or unspecified chronic kidney disease; E11.22 Type 2 diabetes mellitus with diabetic chronic kidney disease; N18.9 Chronic kidney disease, unspecified; I50.9 Heart failure, unspecified; I48.20 Chronic atrial fibrillation, unspecified; Z79.84 Long term (current) use of oral hypoglycemic drugs; Z79.02 Long term (current) use of antithrombotics/antiplatelets; Z79.82 Long term (current) use of aspirin; Z79.899 Other long term (current) drug therapy; Z20.822 Contact with and (suspected) exposure to COVID-19; Z95.0 Presence of cardiac pacemaker; Z95.1 Presence of aortocoronary bypass graft
CPT/HCPCS: 36415; 71045; 80053; 81000; 82550; 82553; 83605; 83690; 83735; 83874; 83880; 84443; 84484; 85025; 85610; 85652; 85730; 86141; 87040; 87077; 87088; 87186; 87636; 93005; 93041